=== PATIENT | male | born 1945 | race Caucasian/White ===

== ENCOUNTER 2016-09-23 04:41 | Emergency (ER) | payer MEDICARE, BC ==
[~2016-09-23] VITALS: Ht 177.8 cm; Wt 89.6 kg
[2016-09-23 04:41] VITALS: Ht 177.8 cm; Wt 89.6 kg
[~2016-09-23 04:41] MED LIST: ACET-783; GABA-222 PO; HYDR-1343 PO; METO1TAB19 PO; ROPI0.5T5; WARF5TAB67 PO
--- OUTSIDE RECORDS SUMMARY | 2016-09-23 04:46 | XMS REPORT | Referral Summary ---
Author Author [facility], Family Medicine Organization [facility] Address Unknown Phone Unavailable Care Team Providers Care Saddle And Harness Maker Name Role Phone Sania Higgins Primary Care Physician [phone] Encounter VC Date(s): 08/08/16 - 08/08/16 [facility], [address] [place] [id number] Discharge Disposition: 01-Home or Self Care Attending Physician: Robb Flowers APRN Admitting Physician: Robb Flowers APRN Referring Physician: Amandeep You III, MD Vital Signs Most recent to 1 oldest [Reference Range]: Temperature Tympanic 37.1 degC [36.6-38.1 degC] (08/08/16 1:59 PM) Peripheral Pulse 56 bpm Rate [60-100 bpm] *LOW* (08/08/16 1:59 PM) Respiratory Rate 18 br/min [14-20 br/min] (08/08/16 1:59 PM) Blood Pressure 124/70 mmHg [90-140/60-90 mmHg] (08/08/16 1:59 PM) SpO2 98 % (08/08/16 1:59 PM) Problem List Condition Effective Dates Status Health Status Informant Asthma(Confirmed) Active Benign essential Active hypertension (disorder)(Confirmed ) Constipation Resolved (disorder)(Confirmed ) Constipation(Confirm Active ed) Coronary artery Active disease(Confirmed) Generalized Active osteoarthritis (disorder)(Confirmed ) Gastritis(Confirmed) Active Gastroduodenitis Active (disorder)(Confirmed ) Hyperlipidemia(Confi Active rmed) Hypertension(Confirm < 02/06/14 Resolved ed) Irritable bowel Active syndrome(Confirmed) Irritable bowel Active syndrome (disorder)(Confirmed ) Back pain(Confirmed) Active Low back pain Active (finding)(Confirmed) Osteoarthritis(Confi Active rmed) Parkinson's disease Active (disorder)(Confirmed ) Parkinson's < 02/06/14 Resolved disease(Confirmed) Peptic ulcer without Active hemorrhage, without perforation AND without obstruction (disorder)(Confirmed ) Protein S Active deficiency/ hypercoagulability(C onfirmed) PUD (peptic ulcer Active disease)(Confirmed) Pulmonary Active embolism(Confirmed) Allergies, Adverse Reactions, Alerts No Known Allergies Medications amLODIPine 5 mg oral tablet 5 mg 1 tabs, Oral, Daily, # 90 tabs, 1 Refill(s), Pharmacy: [facility] [id number], 1 tabs Oral Daily Start Date: 05/06/16 Status: Ordered Coumadin 5 mg tablet See Instructions, TAKE 2 TABLETS BY ORAL ROUTE EVERY MWF EVENING AND 1.5 (7.5 MG ) EVERY STTS EVENING OR DIRECTED, # 90 tabs, eRx: [facility] , TAKE 2 TABLETS BY ORAL ROUTE EVERY MWF EVENING AND 1.5 (7.5 MG) EVERY STTS EVENING OR D... Start Date: 04/30/14 Status: Ordered Coumadin 5 mg tablet See Instructions, TAKE 2 TABLETS BY ORAL ROUTE EVERY MWF EVENING AND 1.5 (7.5 MG ) EVERY STTS EVENING OR DIRECTED, # 90 tabs, eRx: [facility] , TAKE 2 TABLETS BY ORAL ROUTE EVERY MWF EVENING AND 1.5 (7.5 MG) EVERY STTS EVENING OR D... Start Date: 03/05/14 Status: Ordered Coumadin 5 mg tablet See Instructions, TAKE 2 TABLETS BY ORAL ROUTE EVERY MWF EVENING AND 1.5 (7.5 MG ) EVERY STTS EVENING OR DIRECTED, # 90 tabs, eRx: [facility] , TAKE 2 TABLETS BY ORAL ROUTE EVERY MWF EVENING AND 1.5 (7.5 MG) EVERY STTS EVENING OR D... Start Date: 08/21/14 Status: Ordered Coumadin 5 mg tablet See Instructions, TAKE 2 TABLETS BY ORAL ROUTE EVERY MWF EVENING AND 1.5 (7.5 MG ) EVERY STTS EVENING OR DIRECTED, # 90 tabs, eRx: [facility] , TAKE 2 TABLETS BY ORAL ROUTE EVERY MWF EVENING AND 1.5 (7.5 MG) EVERY STTS EVENING OR D... Start Date: 06/17/14 Status: Ordered Metoprolol Tartrate 50 mg oral tablet See Instructions, TAKE 1 TABLET BY MOUTH TWICE DAILY, # 60 tabs, 5 Refill(s), eRx: [facility] [id number], TAKE 1 TABLET BY MOUTH TWICE DAILY Start Date: 05/16/16 Status: Ordered Sinemet 25 mg-100 mg oral tablet 1 tabs, Oral, TID, # 90 tabs, 0 Refill(s) Start Date: 02/07/14 Status: Ordered warfarin 5 mg oral tablet See Instructions, TAKE 1.5 TABLETS BY MOUTH EVERY DAY, with dose adjusted based on blood measruremnets., # 60 tabs, 2 Refill(s), Pharmacy: [facility] [id number], TAKE 1.5 TABLETS BY MOUTH EVERY DAY, with dose adjusted based on blood measruremnets. Start Date: 05/06/16 Status: Ordered Results Hematology Most recent to 1 oldest [Reference Range]: WBC [4.8-10.8 6.0 10*3/uL 10*3/uL] (08/08/16 3:33 PM) RBC [4.60-6.20] 5.10 (08/08/16 3:33 PM) Hgb [14.0-18.0 15.0 gm/dL gm/dL] (08/08/16 3:33 PM) Hct [42.0-52.0 %] 45.5 % (08/08/16 3:33 PM) MCV [82.0-99.0 fL] 89.2 fL (08/08/16 3:33 PM) MCH [27.0-32.0 pg] 29.4 pg (08/08/16 3:33 PM) MCHC [32.0-36.0 33.0 gm/dL gm/dL] (08/08/16 3:33 PM) RDW [11.5-14.5 %] 13.8 % (08/08/16 3:33 PM) Platelet [150-400 216 10*3/uL 10*3/uL] (08/08/16 3:33 PM) MPV [8.8-14.8 fL] 11.1 fL (08/08/16 3:33 PM) Immature 0.3 % Granulocytes (08/08/16 3:33 PM) [0.0-1.0 %] Neutrophils [51-75 58 % %] (08/08/16 3:33 PM) Lymphocytes [20-46 24 % %] (08/08/16 3:33 PM) Monocytes [4-11 %] 14 % *HI* (08/08/16 3:33 PM) Eosinophils [0-4 %] 3 % (08/08/16 3:33 PM) Basophils [0-2 %] 1 % (08/08/16 3:33 PM) Neutro Absolute 3.49 [1.90-7.00] (08/08/16 3:33 PM) Lymph Absolute 1.42 [0.80-3.30] (08/08/16 3:33 PM) Colbert Absolute 0.84 [0.30-1.00] (08/08/16 3:33 PM) Eos Absolute 0.20 [0.00-0.50] (08/08/16 3:33 PM) Baso Absolute 0.03 [0.00-0.20] (08/08/16 3:33 PM) Coagulation Most recent to 1 oldest [Reference Range]: PT Venous (08/08/16 3:33 PM) INR [0.8-1.2] 2.0 1 *HI* (08/08/16 3:33 PM) 1Result Comment: Normal (no anticoagulant): 0.8 - 1.2 Units Routine Therapeutic Range: 2.0 - 3.0 Units High Risk Therapeutic Range: 2.5 - 3.5 Units Chemistry Most recent to 1 oldest [Reference Range]: Sodium Lvl [135-144 141 mEq/L mEq/L] (08/08/16 3:33 PM) Potassium Lvl 4.4 mEq/L [3.5-5.2 mEq/L] (08/08/16 3:33 PM) Chloride [99-111 104 mEq/L mEq/L] (08/08/16 3:33 PM) CO2 [23-31 mEq/L] 27 mEq/L (08/08/16 3:33 PM) AGAP [3-20] 10 (08/08/16 3:33 PM) BUN [8-26 mg/dL] 12 mg/dL (08/08/16 3:33 PM) Glucose Lvl [70-99 92 mg/dL mg/dL] (08/08/16 3:33 PM) Creatinine Lvl 0.90 mg/dL [0.72-1.25 mg/dL] (08/08/16 3:33 PM) eGFR [>60 mL/min] >60 mL/min 1 (08/08/16 3:33 PM) Calcium Lvl 9.2 mg/dL 2 [8.4-10.2 mg/dL] (08/08/16 3:33 PM) Albumin Lvl [3.4-4.8 4.1 gm/dL gm/dL] (08/08/16 3:33 PM) Total Protein 7.1 gm/dL [6.0-7.6 gm/dL] (08/08/16 3:33 PM) Globulin [1.8-4.0 3.0 gm/dL gm/dL] (08/08/16 3:33 PM) ALT [0-55 U/L] 7 U/L (08/08/16 3:33 PM) AST [5-34 U/L] 23 U/L (08/08/16 3:33 PM) Alk Phos [40-150 71 U/L U/L] (08/08/16 3:33 PM) Bili Total [0.2-1.2 0.7 mg/dL mg/dL] (08/08/16 3:33 PM) 1Result Comment: Multiply eGFR results by 1.21 for race. 2Result Comment: Please note reference range change effective 07/29/2016. Immunizations Given and Recorded Vaccine Date Status Refusal Reason tetanus/diphth/pertuss (Tdap) adult/adol 10/02/15 Given influenza virus vaccine, live 05/31/12 Given influenza virus vaccine, live 05/14/12 Given pneumococcal 13-valent conjugate vaccine 10/02/15 Given Procedures Procedure Date Related Diagnosis Body Site Colonoscopy neg September 2011, Dr. 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 7.5mg Monday,Monday,, Monday & Monday Therapeutic level: 2-3 Start Lovenox on 08/09/2016. Give Lovenox 133mg injection once daily until through surgery (08/15/16). After surgery pt can start current Warfarin dosages of 8mg on & Mon, and 7.5mg all other days. Pt.is to continue lovenox of 133mg along with the current Warfarin and to have daily INR's done daily until he reaches his therapeutic level of 2 and then can discontinue Lovenox and continue with Warfarin dosage accordingly to INR levels. Cheng Flowers APRN 08/08/2016 Addendum Called [facility] and spoke to Katerin (PH: [phone] &FAX: [phone]) to set up by appointment. Pt. has appt. at 10:00am tomorrow (08/09/16). I faxed orders to [facility]. I called pt. no answer so I left a messae with the date, time & where to go Dolores Diaz (surgical unit [address] @ [facility]). TALIA on August 08, 2016 17:03 VOCATIONAL EXAMINER
--- OUTSIDE RECORDS SUMMARY | 2016-09-23 04:46 | XMS REPORT | Referral Summary ---
Author Author [facility], Family Medicine Organization [facility] Address Unknown Phone Unavailable Care Team Providers Care Customer Engineer Name Role Phone Sania Higgins Primary Care Physician [phone] Encounter Date(s): 04/03/15 - 04/03/15 [facility] [address] [place] [id number] Discharge Diagnosis: Pulmonary embolism Discharge Diagnosis: Anticoagulation goal of INR 2 to 3 Discharge Diagnosis: Back pain Discharge Diagnosis: Protein S deficiency Discharge Diagnosis: Rash Discharge Diagnosis: Parkinson's disease Discharge Diagnosis: Urine frequency Discharge Diagnosis: Coronary artery disease Discharge Diagnosis: Benign essential hypertension Discharge Disposition: 01-Home or Self Care Attending Physician: Russ Higgins MD Admitting Physician: Russ Higgins MD Vital Signs Most recent to 1 oldest [Reference Range]: Temperature Tympanic 36.7 degC [36.6-38.1 degC] (04/03/15 12:52 PM) Peripheral Pulse 64 bpm Rate [60-100 bpm] (04/03/15 12:52 PM) Blood Pressure 115/60 mmHg [90-140/60-90 mmHg] (04/03/15 12:52 PM) Problem List Condition Effective Dates Status Health Status Informant Anticoagulation goal Active of INR 2 to 3(Confirmed) Asthma(Confirmed) Active Benign essential Active hypertension (disorder)(Confirmed ) Constipation(Confirm Active ed) Constipation Resolved (disorder)(Confirmed ) Coronary artery Active disease(Confirmed) Generalized Active osteoarthritis (disorder)(Confirmed ) Gastritis(Confirmed) Active Gastroduodenitis Active (disorder)(Confirmed ) Hyperlipidemia(Confi Active rmed) Hypertension(Confirm < 02/06/14 Resolved ed) Irritable bowel Active syndrome(Confirmed) Irritable bowel Active syndrome (disorder)(Confirmed ) Back pain(Confirmed) Active Low back pain Active (finding)(Confirmed) Osteoarthritis(Confi Active rmed) Parkinson's < 02/06/14 Resolved disease(Confirmed) Parkinson's disease Active (disorder)(Confirmed ) Peptic ulcer without Active hemorrhage, without perforation AND without obstruction (disorder)(Confirmed ) Protein S Active deficiency/ hypercoagulability(C onfirmed) PUD (peptic ulcer Active disease)(Confirmed) Pulmonary Active embolism(Confirmed) Allergies, Adverse Reactions, Alerts No Known Allergies Medications Coumadin 5 mg oral tablet See Instructions, 2 TABS ORAL DAILY, # 60 tabs, 4 Refill(s), eRx: [email or web address] , 2 TABS ORAL DAILY Start Date: 04/29/15 Status: Ordered Coumadin 5 mg tablet See Instructions, TAKE 2 TABLETS BY ORAL ROUTE EVERY MWF EVENING AND 1.5 (7.5 MG ) EVERY STTS EVENING OR DIRECTED, # 90 tabs, eRx: [email or web address] , TAKE 2 TABLETS BY ORAL ROUTE EVERY MWF EVENING AND 1.5 (7.5 MG) EVERY STTS EVENING OR D... Start Date: 04/30/14 Status: Ordered Coumadin 5 mg tablet See Instructions, TAKE 2 TABLETS BY ORAL ROUTE EVERY MWF EVENING AND 1.5 (7.5 MG ) EVERY STTS EVENING OR DIRECTED, # 90 tabs, eRx: [email or web address] , TAKE 2 TABLETS BY ORAL ROUTE EVERY MWF EVENING AND 1.5 (7.5 MG) EVERY STTS EVENING OR D... Start Date: 03/05/14 Status: Ordered Coumadin 5 mg tablet See Instructions, TAKE 2 TABLETS BY ORAL ROUTE EVERY MWF EVENING AND 1.5 (7.5 MG ) EVERY STTS EVENING OR DIRECTED, # 90 tabs, eRx: [email or web address] , TAKE 2 TABLETS BY ORAL ROUTE EVERY MWF EVENING AND 1.5 (7.5 MG) EVERY STTS EVENING OR D... Start Date: 08/21/14 Status: Ordered Coumadin 5 mg tablet See Instructions, TAKE 2 TABLETS BY ORAL ROUTE EVERY MWF EVENING AND 1.5 (7.5 MG ) EVERY STTS EVENING OR DIRECTED, # 90 tabs, eRx: [email or web address] , TAKE 2 TABLETS BY ORAL ROUTE EVERY MWF EVENING AND 1.5 (7.5 MG) EVERY STTS EVENING OR D... Start Date: 06/17/14 Status: Ordered losartan 50 mg oral tablet 1 tabs, Oral, Daily, # 30 tabs, 0 Refill(s), other reason (Rx) Start Date: 09/30/14 Status: Ordered Metoprolol Tartrate 50 mg oral tablet See Instructions, 1 TABS ORAL BID, # 60 tabs, 5 Refill(s), eRx: [email or web address] [id number], 1 TABS ORAL BID Start Date: 04/10/15 Status: Ordered Sinemet 25 mg-100 mg oral tablet 1 tabs, Oral, TID, # 90 tabs, 0 Refill(s) Start Date: 02/07/14 Status: Ordered triamcinolone 0.1% topical cream 1 gil, Topical, BID, # 15 g, 1 Refill(s), Pharmacy: [email or web address] [id number] Start Date: 04/03/15 Stop Date: 05/04/15 Status: Ordered Results Urinalysis Most recent to 1 oldest [Reference Range]: UA Color Yellow (04/03/15 1:59 PM) UA Appear Turbid *ABN* (04/03/15 1:59 PM) UA pH [5.0-8.0] 5.0 (04/03/15 1:59 PM) UA Leuk Est Negative [Negative] (04/03/15 1:59 PM) UA Nitrite Negative [Negative] (04/03/15 1:59 PM) UA Protein Negative [Negative] (04/03/15 1:59 PM) UA Glucose Negative [Negative] (04/03/15 1:59 PM) UA Ketones Negative [Negative] (04/03/15 1:59 PM) UA Urobilinogen 0.2 mg/dL [<1.0 mg/dL] (04/03/15 1:59 PM) UA Bili [Negative] Negative (04/03/15 1:59 PM) UA Blood [Negative] Negative (04/03/15 1:59 PM) UA Spec Grav 1.036 [1.003-1.030] *HI* (04/03/15 1:59 PM) Type Clean Catch (04/03/15 1:59 PM) Immunizations Vaccine Date Refusal Reason influenza virus vaccine, live 05/31/12 influenza virus vaccine, live 05/14/12 Procedures Procedure Date Related Diagnosis Body Site Colonoscopy neg September 2011, Dr. Abreu 09/2011 Social History Social History Type Response Smoking Status Never smoker; Type: Cigarettes Assessment and Plan Extracted from: Title: Office Visit Note Author: Russ Higgins MD Date: 04/03/15 Assessment/Plan Anticoagulation goal of INR 2 to 3 Back pain Benign essential hypertension Ordered: Basic Metabolic Panel Coronary artery disease Parkinson's disease Protein S deficiency Pulmonary embolism Rash Urine frequency Ordered: Urinalysis with Culture if Indicated Orders: triamcinolone topical, 1 gil, Topical, BID, # 15 g, 1 Refill(s), Pharmacy: [facility] [id number] Continue current medications. Try the Triamcinolone cream for the rash on your foot. Extracted from: Title: Ambulatory Patient Education Author: Russ Higgins MD Date: Family Medicine Urinary Frequency The number of times a normal person urinates depends upon how much liquid they take in and how much liquid they are losing. If the temperature is hot and there is high humidity, then the person will sweat more and usually breathe a little more frequently. These factors decrease the amount of frequency of urination that would be considered normal. The amount you drink is easily determined, but the amount of fluid lost is sometimes more difficult to calculate. Fluid is lost in two ways: Sensible fluid loss is usually measured by the amount of urine that you get rid of. Losses of fluid can also occur with diarrhea. Insensible fluid loss is more difficult to measure. It is caused by evaporation. Insensible loss of fluid occurs through breathing and sweating. It usually ranges from a little less than a quart to a little more than a quart of fluid a day. In normal temperatures and activity levels, the average person may urinate 4 to 7 times in a 24-hour period. Needing to urinate more often than that could indicate a problem. If one urinates 4 to 7 times in 24 hours and has large volumes each time, that could indicate a different problem from one who urinates 4 to 7 times a day and has small volumes. The time of urinating is also important. Most urinating should be done during the waking hours. Getting up at night to urinate frequently can indicate some problems. CAUSES The bladder is the organ in your lower abdomen that holds urine. Like a balloon , it swells some as it fills up. Your nerves sense this and tell you it is time to head for the bathroom. There are a number of reasons that you might feel the need to urinate more often than usual. They include: Urinary tract infection. This is usually associated with other signs such as burning when you urinate. In men, problems with the prostate (a walnut-size gland that is located near the tube that carries urine out of your body). There are two reasons why the prostate can cause an increased frequency of urination: An enlarged prostate that does not let the bladder empty well. If the bladder only half empties when you urinate, then it only has half the capacity to fill before you have to urinate again. The nerves in the bladder become more hypersensitive with an increased size of the prostate even if the bladder empties completely. . Obesity. Excess weight is more likely to cause a problem for women than for men. Bladder stones or other bladder problems. Caffeine. Alcohol. Medications. For example, drugs that help the body get rid of extra fluid ( diuretics) increase urine production. Some other medicines must be taken with lots of fluids. Muscle or nerve weakness. This might be the result of a spinal cord injury , a stroke, multiple sclerosis, or Parkinson disease. Long-standing diabetes can decrease the sensation of the bladder. This loss of sensation makes it harder to sense the bladder needs to be emptied. Over a period of years, the bladder is stretched out by constant overfilling. This weakens the bladder muscles so that the bladder does not empty well and has less capacity to fill with new urine. Interstitial cystitis (also called painful bladder syndrome). This condition develops because the tissues that line the inside of the bladder are inflamed (inflammation is the body's way of reacting to injury or infection). It causes pain and frequent urination. It occurs in women more often than in men. DIAGNOSIS To decide what might be causing your urinary frequency, your health care provider will probably: Ask about symptoms you have noticed. Ask about your overall health. This will include questions about any medications you are taking. Do a physical examination. Order some tests. These might include: A blood test to check for diabetes or other health issues that could be contributing to the problem. Urine testing. This could measure the flow of urine and the pressure on the bladder. A test of your neurological system (the brain, spinal cord, and nerves). This is the system that senses the need to urinate. A bladder test to check whether it is emptying completely when you urinate. Cystoscopy. This test uses a thin tube with a tiny camera on it. It offers a look inside your urethra and bladder to see if there are problems. Imaging tests. You might be given a contrast dye and then asked to urinate. X-rays are taken to see how your bladder is working. TREATMENT It is important for you to be evaluated to determine if the amount or frequency that you have is unusual or abnormal. If it is found to be abnormal, the cause should be determined and this can usually be found out easily. Depending upon the cause, treatment could include medication, stimulation of the nerves, or surgery. There are not too many things that you can do as an individual to change your urinary frequency. It is important that you balance the amount of fluid intake needed to compensate for your activity and the temperature. Medical problems will be diagnosed and taken care of by your physician. There is no particular bladder training such as Kegel exercises that you can do to help urinary frequency. This is an exercise that is usually recommended for people who have leaking of urine when they laugh, cough, or sneeze. HOME CARE INSTRUCTIONS Take any medications your health care provider prescribed or suggested. Follow the directions carefully. Practice any lifestyle changes that are recommended. These might include: Drinking less fluid or drinking at different times of the day. If you need to urinate often during the night, for example, you may need to stop drinking fluids early in the evening. Cutting down on caffeine or alcohol. They both can make you need to urinate more often than normal. Caffeine is found in coffee, tea, and sodas. Losing weight, if that is recommended. Keep a journal or a log. You might be asked to record how much you drink and when and where you feel the need to urinate. This will also help evaluate how well the treatment provided by your physician is working. SEEK MEDICAL CARE IF: Your need to urinate often gets worse. You feel increased pain or irritation when you urinate. You notice blood in your urine. You have questions about any medications that your health care provider recommended. You notice blood, pus, or swelling at the site of any test or treatment procedure. You develop a fever of more than 100.5F (38.1C). SEEK IMMEDIATE MEDICAL CARE IF: You develop a fever of more than 102.0F (38.9C). Document Released: 04/08/2010 Document Revised: 10/27/2014 Document Reviewed: ExitCare Patient Information 2015 [facility], [facility]. This information is not intended to replace advice given to you by your health care provider. Make sure you discuss any questions you have with your health care provider. No follow up information was provided.
--- OUTSIDE RECORDS SUMMARY | 2016-09-23 04:46 | XMS REPORT | Referral Summary ---
Author Author [facility], Family Medicine Organization [facility] Address Unknown Phone Unavailable Care Team Providers Care Electrical Research Engineer Name Role Phone Sania Higgins Primary Care Physician [phone] Encounter VC Date(s): 03/28/16 - 03/28/16 [facility] [address] [place] [id number] Discharge Diagnosis: Benign essential hypertension Discharge Diagnosis: Fatigue Discharge Diagnosis: Parkinson's disease Discharge Diagnosis: Myalgia Discharge Disposition: 01-Home or Self Care Attending Physician: Russ Higgins MD Admitting Physician: Russ Higgins MD Vital Signs Most recent to 1 oldest [Reference Range]: Temperature Tympanic 36.1 degC [36.6-38.1 degC] *LOW* (03/28/16 10:05 AM) Peripheral Pulse 70 bpm Rate [60-100 bpm] (03/28/16 10:05 AM) Blood Pressure 142/78 mmHg [90-140/60-90 mmHg] *HI* (03/28/16 10:05 AM) Problem List Condition Effective Dates Status Health [...] 5 mg 1 tabs, Oral, Daily, # 30 tabs, 1 Refill(s), Pharmacy: [email or web address], 1 tabs Oral Daily Start Date: 03/28/16 Status: Ordered Coumadin 5 mg tablet See Instructions, TAKE 2 TABLETS BY ORAL ROUTE EVERY MWF EVENING AND 1.5 (7.5 MG ) EVERY STTS EVENING OR DIRECTED, # 90 tabs, eRx: [facility] , TAKE 2 TABLETS BY ORAL ROUTE EVERY MWF EVENING AND 1.5 (7.5 MG) EVERY STTS EVENING OR D... Start Date: 04/30/14 Status: Ordered Coumadin 5 mg tablet See Instructions, TAKE 2 TABLETS BY ORAL ROUTE EVERY MWF EVENING AND 1.5 (7.5 MG ) EVERY STTS EVENING OR DIRECTED, # 90 tabs, eRx: [facility] , TAKE 2 TABLETS BY ORAL ROUTE EVERY MWF EVENING AND 1.5 (7.5 MG) EVERY STTS EVENING OR D... Start Date: 03/05/14 Status: Ordered Coumadin 5 mg tablet See Instructions, TAKE 2 TABLETS BY ORAL ROUTE EVERY MWF EVENING AND 1.5 (7.5 MG ) EVERY STTS EVENING OR DIRECTED, # 90 tabs, eRx: [facility] , TAKE 2 TABLETS BY ORAL ROUTE EVERY MWF EVENING AND 1.5 (7.5 MG) EVERY STTS EVENING OR D... Start Date: 08/21/14 Status: Ordered Coumadin 5 mg tablet See Instructions, TAKE 2 TABLETS BY ORAL ROUTE EVERY MWF EVENING AND 1.5 (7.5 MG ) EVERY STTS EVENING OR DIRECTED, # 90 tabs, eRx: [facility] , TAKE 2 TABLETS BY ORAL ROUTE EVERY MWF EVENING AND 1.5 (7.5 MG) EVERY STTS EVENING OR D... Start Date: 06/17/14 Status: Ordered Metoprolol Tartrate 50 mg oral tablet See Instructions, TAKE 1 TABLET BY MOUTH TWICE DAILY, # 60 tabs, 4 Refill(s), eRx: [facility] [id number], TAKE 1 TABLET BY MOUTH TWICE DAILY Start Date: 12/11/15 Status: Ordered Sinemet 25 mg-100 mg oral tablet 1 tabs, Oral, TID, # 90 tabs, 0 Refill(s) Start Date: 02/07/14 Status: Ordered warfarin 5 mg oral tablet See Instructions, TAKE 2 TABLETS BY MOUTH EVERY DAY, # 60 tabs, 3 Refill(s), eRx : [facility] [id number], TAKE 2 TABLETS BY MOUTH EVERY DAY Start Date: 11/18/15 Status: Ordered Results Hematology Most recent to 1 oldest [Reference Range]: Sed Rate [0-15] 8 (03/28/16 11:00 AM) Chemistry Most recent to 1 oldest [Reference Range]: Sodium Lvl [135-144 139 mEq/L mEq/L] (03/28/16 11:00 AM) Potassium Lvl 4.2 mEq/L [3.5-5.2 mEq/L] (03/28/16 11:00 AM) Chloride [99-111 105 mEq/L mEq/L] (03/28/16 11:00 AM) CO2 [23-31 mEq/L] 26 mEq/L (03/28/16 11:00 AM) AGAP [3-20] 8 (03/28/16 11:00 AM) BUN [8-26 mg/dL] 16 mg/dL (03/28/16 11:00 AM) Glucose Lvl [70-99 98 mg/dL mg/dL] (03/28/16 11:00 AM) Creatinine Lvl 0.85 mg/dL [0.72-1.25 mg/dL] (03/28/16 11:00 AM) eGFR [>60 mL/min] >60 mL/min 1 (03/28/16 11:00 AM) Calcium Lvl 9.2 mg/dL [8.9-10.5 mg/dL] (03/28/16 11:00 AM) 1Result Comment: Multiply eGFR results by 1.21 for race. Immunizations Vaccine Date Refusal Reason tetanus/diphth/pertuss (Tdap) adult/adol 10/02/15 influenza virus vaccine, live 05/31/12 influenza virus vaccine, live 05/14/12 pneumococcal 13-valent conjugate vaccine 10/02/15 Procedures Procedure Date Related Diagnosis Body Site Colonoscopy neg September 2011, Dr. Abreu 09/2011 Social History Social History Type Response Smoking Status Never smoker; Type: Cigarettes Assessment and Plan Extracted from: Title: CDM HTN Author: Russ Higgins MD Date: 03/28/16 Impression and Plan Diagnosis Parkinson's disease ([id number] G20, Discharge, Medical). Myalgia (EIJ41-LP M79.1, Discharge, Medical). Fatigue (ZFM89-RG R53.83, Discharge, Medical). Benign essential hypertension ([id number] I10, Discharge, Medical). Orders Orders (Selected) Outpatient Orders Future (On Hold) BMP: Sedimentation Rate: Prescriptions Prescribed amLODIPine 5 mg oral tablet: 5 mg=1 tabs, Oral, Daily, 30 tabs, 1 Refill(s).
--- OUTSIDE RECORDS SUMMARY | 2016-09-23 04:46 | XMS REPORT | Referral Summary ---
Author Author [facility], Family Medicine Organization [facility] Address Unknown Phone Unavailable Care Team Providers Care Farm Loan Representative Name Role Phone Sania Higgins Primary Care Physician [phone] Encounter Date(s): 10/02/15 - 10/02/15 [facility], [address] [place] [id number] Discharge Diagnosis: Irritable bowel syndrome Discharge Diagnosis: Hyperlipidemia Discharge Diagnosis: Benign essential hypertension Discharge Diagnosis: Protein S deficiency Discharge Diagnosis: Degenerative joint disease involving multiple joints Discharge Diagnosis: Coronary artery disease Discharge Diagnosis: Warfarin anticoagulation Discharge Diagnosis: Parkinson's disease Discharge Disposition: 01-Home or Self Care Attending Physician: Russ Higgins MD Admitting Physician: Russ Higgins MD Vital Signs Most recent to 1 oldest [Reference Range]: Temperature Tympanic 36.4 degC [36.6-38.1 degC] *LOW* (10/02/15 12:53 PM) Peripheral Pulse 68 bpm Rate [60-100 bpm] (10/02/15 12:53 PM) Blood Pressure 156/80 mmHg [90-140/60-90 mmHg] *HI* (10/02/15 12:53 PM) Problem List Condition Effective Dates Status [...] DAILY, # 60 tabs, 4 Refill(s), eRx: [facility] , 2 TABS ORAL DAILY Start Date: 04/29/15 Status: Ordered Coumadin 5 mg tablet See Instructions, TAKE 2 TABLETS BY ORAL ROUTE EVERY MWF EVENING AND 1.5 (7.5 MG ) EVERY STTS EVENING OR DIRECTED, # 90 tabs, eRx: [facility] , TAKE 2 TABLETS BY ORAL ROUTE EVERY MWF EVENING AND 1.5 (7.5 MG) EVERY STTS EVENING OR D... Start Date: 04/30/14 Status: Ordered Coumadin 5 mg tablet See Instructions, TAKE 2 TABLETS BY ORAL ROUTE EVERY MWF EVENING AND 1.5 (7.5 MG ) EVERY STTS EVENING OR DIRECTED, # 90 tabs, eRx: [facility] , TAKE 2 TABLETS BY ORAL ROUTE EVERY MWF EVENING AND 1.5 (7.5 MG) EVERY STTS EVENING OR D... Start Date: 03/05/14 Status: Ordered Coumadin 5 mg tablet See Instructions, TAKE 2 TABLETS BY ORAL ROUTE EVERY MWF EVENING AND 1.5 (7.5 MG ) EVERY STTS EVENING OR DIRECTED, # 90 tabs, eRx: [facility] , TAKE 2 TABLETS BY ORAL ROUTE EVERY MWF EVENING AND 1.5 (7.5 MG) EVERY STTS EVENING OR D... Start Date: 08/21/14 Status: Ordered Coumadin 5 mg tablet See Instructions, TAKE 2 TABLETS BY ORAL ROUTE EVERY MWF EVENING AND 1.5 (7.5 MG ) EVERY STTS EVENING OR DIRECTED, # 90 tabs, eRx: [facility] , TAKE 2 TABLETS BY ORAL ROUTE [...] BID, # 60 tabs, 5 Refill(s), eRx: [id number], 1 TABS ORAL BID Start Date: 04/10/15 Status: Ordered Sinemet 25 mg-100 mg oral tablet 1 tabs, Oral, TID, # 90 tabs, 0 Refill(s) Start Date: 02/07/14 Status: Ordered Results Hematology Most recent to 1 oldest [Reference Range]: WBC [4.8-10.8 4.9 10*3/uL 10*3/uL] (10/02/15 1:50 PM) RBC [4.60-6.20] 5.18 (10/02/15 1:50 PM) Hgb [14.0-18.0 15.1 gm/dL gm/dL] (10/02/15 1:50 PM) Hct [42.0-52.0 %] 45.9 % (10/02/15 1:50 PM) MCV [82.0-99.0 fL] 88.6 fL (10/02/15 1:50 PM) MCH [27.0-32.0 pg] 29.2 pg (10/02/15 1:50 PM) MCHC [32.0-36.0 32.9 gm/dL gm/dL] (10/02/15 1:50 PM) RDW [11.5-14.5 %] 14.0 % (10/02/15 1:50 PM) Platelet [150-400 242 10*3/uL 10*3/uL] (10/02/15 1:50 PM) MPV [8.8-14.8 fL] 10.7 fL (10/02/15 1:50 PM) Immature 0.2 % Granulocytes (10/02/15 1:50 PM) [0.0-1.0 %] Neutrophils [51-75 63 % %] (10/02/15 1:50 PM) Lymphocytes [20-46 20 % %] (10/02/15 1:50 PM) Monocytes [4-11 %] 15 % *HI* (10/02/15 1:50 PM) Eosinophils [0-4 %] 2 % (10/02/15 1:50 PM) Basophils [0-2 %] 0 % (10/02/15 1:50 PM) Neutro Absolute 3.05 10*3 [1.90-7.00 10*3] (10/02/15 1:50 PM) Lymph Absolute 0.96 10*3 [0.80-3.30 10*3] (10/02/15 1:50 PM) [place] Absolute 0.72 10*3 [0.30-1.00 10*3] (10/02/15 1:50 PM) Eos Absolute 0.10 10*3 [0.00-0.50 10*3] (10/02/15 1:50 PM) Baso Absolute 0.02 10*3 [0.00-0.20 10*3] (10/02/15 1:50 PM) Chemistry Most recent to 1 oldest [Reference Range]: Sodium Lvl [135-144 138 mEq/L mEq/L] (10/02/15 1:50 PM) Potassium Lvl 4.2 mEq/L [3.5-5.2 mEq/L] (10/02/15 1:50 PM) Chloride [99-111 105 mEq/L mEq/L] (10/02/15 1:50 PM) CO2 [23-31 mEq/L] 27 mEq/L (10/02/15 1:50 PM) AGAP [3-20] 6 (10/02/15 1:50 PM) BUN [8-26 mg/dL] 13 mg/dL (10/02/15 1:50 PM) Glucose Lvl [70-99 95 mg/dL mg/dL] (10/02/15 1:50 PM) Creatinine Lvl 0.89 mg/dL [0.72-1.25 mg/dL] (10/02/15 1:50 PM) eGFR [>60 mL/min] >60 mL/min 1 (10/02/15 1:50 PM) Calcium Lvl 9.2 mg/dL [8.9-10.5 mg/dL] (4/8/16 1:50 PM) TSH with Reflex Free 1.81 T4 [0.35-4.94] (10/02/15 1:50 PM) 1Result Comment: Multiply eGFR results by [...] Cigarettes Assessment and Plan Extracted from: Title: CRMMP Author: Russ Higgins MD Date: 10/02/15 Assessment/Plan Benign essential hypertension Coronary artery disease Degenerative joint disease involving multiple joints Fatigue Ordered: Basic Metabolic Panel CBC w/ Differential TSH with Reflex Free T4 Hyperlipidemia Irritable bowel syndrome Need for vaccination Parkinson's disease Protein S deficiency Warfarin anticoagulation Orders: Lipid Panel Urinalysis with Culture if Indicated We'll evaluate fatigue with CBC, BMP, TSH. Also check urinalysis because of some urine urgency and screening PSA. Fasting lipids planned another day. He will follow with Dr. Johnson regarding coronary artery disease. Continue with Coumadin management per protocol-see flowsheet. Vaccines updated today. Follow-up 6 months or sooner if needed.
--- OUTSIDE RECORDS SUMMARY | 2016-09-23 04:46 | XMS REPORT | Referral Summary ---
Author Author [facility], Family Medicine Organization [facility] Address Unknown Phone Unavailable Care Team Providers Care Oven Stripper Name Role Phone Sania Higgins Primary Care Physician [phone] Encounter VC Date(s): 11/27/15 - 11/27/15 [facility] [address] [place] [address] Discharge Diagnosis: Benign essential hypertension Discharge Diagnosis: Warfarin anticoagulation Discharge Diagnosis: Protein S deficiency Discharge Disposition: 01-Home or Self Care Attending Physician: Russ Higgins MD Admitting Physician: Russ Higgins MD Vital Signs Most recent to 1 oldest [Reference Range]: Peripheral Pulse 63 bpm Rate [60-100 bpm] (11/27/15 11:03 AM) Respiratory Rate 18 br/min [14-20 br/min] (11/27/15 11:03 AM) Blood Pressure 118/68 mmHg [90-140/60-90 mmHg] (11/27/15 11:03 AM) SpO2 98 % (11/27/15 11:03 AM) Problem List Condition Effective Dates Status [...] No Known Allergies Medications Coumadin 5 mg tablet See Instructions, TAKE 2 TABLETS BY ORAL ROUTE EVERY MWF EVENING AND 1.5 (7.5 MG ) EVERY STTS EVENING OR DIRECTED, # 90 tabs, eRx: [facility] [id number] , TAKE 2 TABLETS BY ORAL ROUTE EVERY MWF EVENING AND 1.5 (7.5 MG) EVERY STTS EVENING OR D... Start Date: 04/30/14 Status: Ordered Coumadin 5 mg tablet See Instructions, TAKE 2 TABLETS BY ORAL ROUTE EVERY MWF EVENING AND 1.5 (7.5 MG ) EVERY STTS EVENING OR DIRECTED, # 90 tabs, eRx: [facility] , TAKE 2 TABLETS BY ORAL ROUTE EVERY MWF EVENING AND 1.5 (7.5 MG) EVERY STTS EVENING OR D... Start Date: 03/05/14 Status: Ordered Coumadin 5 mg tablet See Instructions, TAKE 2 TABLETS BY ORAL ROUTE EVERY MWF EVENING AND 1.5 (7.5 MG ) EVERY STTS EVENING OR DIRECTED, # 90 tabs, eRx: [facility] , TAKE 2 TABLETS BY ORAL ROUTE EVERY MWF EVENING AND 1.5 (7.5 MG) EVERY STTS EVENING OR D... Start Date: 08/21/14 Status: Ordered Coumadin 5 mg tablet See Instructions, TAKE 2 TABLETS BY ORAL ROUTE EVERY MWF EVENING AND 1.5 (7.5 MG ) EVERY STTS EVENING OR DIRECTED, # 90 tabs, eRx: [facility] , TAKE 2 TABLETS BY ORAL ROUTE EVERY MWF EVENING AND 1.5 (7.5 MG) EVERY STTS EVENING OR D... Start Date: 06/17/14 Status: Ordered losartan-hydrochlorothiazide 50 mg-12.5 mg oral tablet 1 tabs, Oral, Daily, # 30 tabs, 2 Refill(s), Pharmacy: [facility] [place][note 2] Start Date: 10/29/15 Status: Ordered Metoprolol Tartrate 50 mg oral tablet See Instructions, TAKE 1 TABLET BY MOUTH TWICE DAILY, # 60 tabs, eRx: [id number], TAKE 1 TABLET BY MOUTH TWICE DAILY Start Date: 10/07/15 Status: Ordered Metoprolol Tartrate 50 mg oral tablet See Instructions, TAKE 1 TABLET BY MOUTH TWICE DAILY, # 60 tabs, eRx: [facility] [id number], TAKE 1 TABLET BY MOUTH TWICE DAILY Start Date: 11/09/15 Status: Ordered Sinemet 25 mg-100 mg oral tablet 1 tabs, Oral, TID, # 90 tabs, 0 Refill(s) Start Date: 02/07/14 Status: Ordered warfarin 5 mg oral tablet See Instructions, TAKE 2 TABLETS BY MOUTH EVERY DAY, # 60 tabs, 3 Refill(s), eRx : [facility] [id number], TAKE 2 TABLETS BY MOUTH EVERY DAY Start Date: 11/18/15 Status: Ordered Results Coagulation Most recent to 1 oldest [Reference Range]: PT Venous (11/27/15 11:34 AM) INR [0.8-1.2] 2.3 1 *HI* (11/27/15 11:34 AM) 1Result Comment: Normal (no anticoagulant): 0.8 - 1.2 Units Routine Therapeutic Range: 2.0 - 3.0 Units High Risk Therapeutic Range: 2.5 - 3.5 Units Chemistry Most recent to 1 oldest [Reference Range]: Sodium Lvl [135-144 140 mEq/L mEq/L] (11/27/15 11:34 AM) Potassium Lvl 4.0 mEq/L [3.5-5.2 mEq/L] (11/27/15 11:34 AM) Chloride [99-111 104 mEq/L mEq/L] (11/27/15 11:34 AM) CO2 [23-31 mEq/L] 29 mEq/L (11/27/15 11:34 AM) AGAP [3-20] 7 (11/27/15 11:34 AM) BUN [8-26 mg/dL] 17 mg/dL (11/27/15 11:34 AM) Glucose Lvl [70-99 93 mg/dL mg/dL] (11/27/15 11:34 AM) Creatinine Lvl 0.99 mg/dL [0.72-1.25 mg/dL] (11/27/15 11:34 AM) eGFR [>60 mL/min] >60 mL/min 1 (11/27/15 11:34 AM) Calcium Lvl 9.4 mg/dL [8.9-10.5 mg/dL] (11/27/15 11:34 AM) 1Result Comment: Multiply eGFR results by [...] Assessment and Plan Extracted from: Title: CDM OV Author: Russ Higgins MD Date: 11/27/15 Impression and Plan Diagnosis Benign essential hypertension ([id number] I10, Discharge, Medical). Protein S deficiency (XYZ31-OZ D68.59, Discharge, Medical). Warfarin anticoagulation (MOL78-VB Z79.01, Discharge, Medical). Plan: He is doing well overall. Continue with current care. Continue follow up with Dr. Williamson. Advised that he could try an antihistamine for nasal drainage, such as Claritin , Vi, or Zyrtec. Will check INR and BMP today. Follow up in 6 months or sooner if needed. . Orders Orders (Selected) Outpatient Orders Future (On Hold) BMP: INR (PT): .
--- OUTSIDE RECORDS SUMMARY | 2016-09-23 04:46 | XMS REPORT | Referral Summary ---
Author Author [facility], Family Medicine Organization [facility] Address Unknown Phone Unavailable Care Team Providers Care Hatchery Helper Name Role Phone Sania Higgins Primary Care Physician [phone] Encounter Date(s): 04/03/15 - 04/03/15 [facility] [address] [place] [id number] Discharge Diagnosis: Pulmonary embolism Discharge Diagnosis: [...] DAILY, # 60 tabs, 4 Refill(s), eRx: [facility] , 2 TABS ORAL DAILY Start Date: 04/29/15 Status: Ordered Coumadin 5 mg tablet See Instructions, TAKE 2 TABLETS BY ORAL ROUTE EVERY MWF EVENING AND 1.5 (7.5 MG ) EVERY STTS EVENING OR DIRECTED, # 90 tabs, eRx: [facility] , TAKE 2 TABLETS BY ORAL ROUTE EVERY MWF EVENING AND 1.5 (7.5 MG) EVERY STTS EVENING OR D... Start Date: 04/30/14 Status: Ordered Coumadin 5 mg tablet See Instructions, TAKE 2 TABLETS BY ORAL ROUTE EVERY MWF EVENING AND 1.5 (7.5 MG ) EVERY STTS EVENING OR DIRECTED, # 90 tabs, eRx: [facility] , TAKE 2 TABLETS BY ORAL ROUTE EVERY MWF EVENING AND 1.5 (7.5 MG) EVERY STTS EVENING OR D... Start Date: 03/05/14 Status: Ordered Coumadin 5 mg tablet See Instructions, TAKE 2 TABLETS BY ORAL ROUTE EVERY MWF EVENING AND 1.5 (7.5 MG ) EVERY STTS EVENING OR DIRECTED, # 90 tabs, eRx: [facility] , TAKE 2 TABLETS BY ORAL ROUTE EVERY MWF EVENING AND 1.5 (7.5 MG) EVERY STTS EVENING OR D... Start Date: 08/21/14 Status: Ordered Coumadin 5 mg tablet See Instructions, TAKE 2 TABLETS BY ORAL ROUTE EVERY MWF EVENING AND 1.5 (7.5 MG ) EVERY STTS EVENING OR DIRECTED, # 90 tabs, eRx: [facility] , TAKE 2 TABLETS BY ORAL ROUTE EVERY MWF EVENING AND 1.5 (7.5 MG) EVERY STTS EVENING OR D... Start Date: 06/17/14 Status: Ordered losartan 50 mg oral tablet See Instructions, TAKE 1 TABLET BY MOUTH DAILY, # 30 tabs, eRx: [facility] [id number], TAKE 1 TABLET BY MOUTH DAILY Start Date: 10/07/15 Status: Ordered Metoprolol Tartrate 50 mg oral tablet See Instructions, TAKE 1 TABLET BY MOUTH TWICE DAILY, # 60 tabs, eRx: [facility] [id number], TAKE 1 TABLET BY MOUTH TWICE DAILY Start Date: 10/07/15 Status: Ordered Sinemet 25 mg-100 mg oral tablet 1 tabs, Oral, TID, # 90 tabs, 0 Refill(s) Start Date: 02/07/14 Status: Ordered Results Urinalysis Most recent to [...] 1:59 PM) Immunizations Vaccine Date Refusal Reason tetanus/diphth/pertuss (Tdap) [...] BID, # 15 g, 1 Refill(s), Pharmacy: [facility] [id number] Continue current medications. Try the Triamcinolone cream [...] 10/27/2014 Document Reviewed: ExitCare Patient Information 2015 [facility], [facility]. This information is not intended to replace advice given to you by your health care provider. Make sure you discuss any questions you have with your health care provider. No follow up information was provided.
--- OUTSIDE RECORDS SUMMARY | 2016-09-23 04:46 | XMS REPORT | Referral Summary ---
Author Author [facility], Family Medicine Organization [facility] Address Unknown Phone Unavailable Care Team Providers Care Sdc Teacher Name Role Phone Sania Higgins Primary Care Physician [phone] Encounter VC Date(s): 05/06/16 - 05/06/16 [facility] [address] [place] [address] Discharge Diagnosis: Protein S deficiency Discharge Diagnosis: Benign essential hypertension Discharge Diagnosis: Warfarin anticoagulation Discharge Disposition: 01-Home or Self Care Attending Physician: Russ Higgins MD Admitting Physician: Russ Higgins MD Vital Signs Most recent to 1 oldest [Reference Range]: Temperature Tympanic 36.5 degC [36.6-38.1 degC] *LOW* (05/06/16 10:53 AM) Peripheral Pulse 55 bpm Rate [60-100 bpm] *LOW* (05/06/16 10:53 AM) Blood Pressure 136/74 mmHg [90-140/60-90 mmHg] (05/06/16 10:53 AM) SpO2 98 % (05/06/16 10:53 AM) Problem List Condition Effective Dates Status [...] Daily, # 90 tabs, 1 Refill(s), Pharmacy: [facility] [id number], 1 tabs Oral Daily Start Date: 05/06/16 Status: Ordered Coumadin 5 mg tablet See Instructions, TAKE 2 TABLETS BY ORAL ROUTE EVERY MWF EVENING AND 1.5 (7.5 MG ) EVERY STTS EVENING OR DIRECTED, # 90 tabs, eRx: [facility] , TAKE 2 TABLETS BY ORAL ROUTE EVERY MWF EVENING AND 1.5 (7.5 MG) EVERY STTS EVENING OR D... Start Date: 04/30/14 Status: Ordered Coumadin 5 mg tablet See Instructions, TAKE 2 TABLETS BY ORAL ROUTE EVERY MWF EVENING AND 1.5 (7.5 MG ) EVERY STTS EVENING OR DIRECTED, # 90 tabs, eRx: [facility] , TAKE 2 TABLETS BY ORAL ROUTE EVERY MWF EVENING AND 1.5 (7.5 MG) EVERY STTS EVENING OR D... Start Date: 03/05/14 Status: Ordered Coumadin 5 mg tablet See Instructions, TAKE 2 TABLETS BY ORAL ROUTE EVERY MWF EVENING AND 1.5 (7.5 MG ) EVERY STTS EVENING OR DIRECTED, # 90 tabs, eRx: [facility] , TAKE 2 TABLETS BY ORAL ROUTE EVERY MWF EVENING AND 1.5 (7.5 MG) EVERY STTS EVENING OR D... Start Date: 08/21/14 Status: Ordered Coumadin 5 mg tablet See Instructions, TAKE 2 TABLETS BY ORAL ROUTE EVERY MWF EVENING AND 1.5 (7.5 MG ) EVERY STTS EVENING OR DIRECTED, # 90 tabs, eRx: [facility] , TAKE 2 TABLETS BY ORAL ROUTE EVERY MWF EVENING AND 1.5 (7.5 MG) EVERY STTS EVENING OR D... Start Date: 06/17/14 Status: Ordered Metoprolol Tartrate 50 mg oral tablet See Instructions, TAKE 1 TABLET BY MOUTH TWICE DAILY, # 60 tabs, 4 Refill(s), eRx: [facility] [id number], TAKE 1 TABLET BY MOUTH TWICE DAILY Start Date: 12/11/15 Status: Ordered Sinemet 25 mg-100 mg oral tablet 1 tabs, Oral, TID, # 90 tabs, 0 Refill(s) Start Date: 02/07/14 Status: Ordered warfarin 5 mg oral tablet See Instructions, TAKE 1.5 TABLETS BY MOUTH EVERY DAY, with dose adjusted based on blood measruremnets., # 60 tabs, 2 Refill(s), Pharmacy: [facility] [id number], TAKE 1.5 TABLETS BY MOUTH EVERY DAY, with dose adjusted based on blood measruremnets. Start Date: 05/06/16 Status: Ordered Results Coagulation Most recent to 1 oldest [Reference Range]: PT Venous (05/06/16 11:25 AM) INR [0.8-1.2] 1.8 1 *HI* (05/06/16 11:25 AM) 1Result Comment: Normal (no anticoagulant): 0.8 - 1.2 Units Routine Therapeutic Range: 2.0 - 3.0 Units High Risk Therapeutic Range: 2.5 - 3.5 Units Immunizations Vaccine Date Refusal Reason tetanus/diphth/pertuss (Tdap) adult/adol 10/02/15 influenza virus vaccine, live 05/31/12 influenza virus vaccine, live 05/14/12 pneumococcal 13-valent conjugate vaccine 10/02/15 Procedures Procedure Date Related Diagnosis Body Site Colonoscopy neg September 2011, Dr. Abreu 09/2011 Social History Social History Type Response Smoking Status Never smoker; Type: Cigarettes Assessment and Plan Extracted from: Title: 1 Month CDM Author: Russ Higgins MD Date: 05/06/16 Impression and Plan Diagnosis Benign essential hypertension ([id number]-[id number] I10, Discharge, Medical). Warfarin anticoagulation (ZKP09-OS Z79.01, Discharge, Medical). Protein S deficiency (SAO33-NM D68.59, Discharge, Medical). Orders Orders (Selected) Outpatient Orders Future (On Hold) PT/INR: Prescriptions Prescribed amLODIPine 5 mg oral tablet: 5 mg=1 tabs, Oral, Daily, 90 tabs, 1 Refill(s) warfarin 5 mg oral tablet: See Instructions, TAKE 1.5 TABLETS BY MOUTH EVERY DAY, with dose adjusted based on blood measruremnets., 60 tabs, 2 Refill(s).
--- OUTSIDE RECORDS SUMMARY | 2016-09-23 04:46 | XMS REPORT | Referral Summary ---
Author Author [facility], Family Medicine Organization [facility] Address Unknown Phone Unavailable Care Team Providers Care Catalog Library Assistant Name Role Phone Sania Higgins Primary Care Physician [phone] Encounter Date(s): 04/03/15 - 04/03/15 [facility] [address] [place] [address] [[email or web address] Discharge Diagnosis: Pulmonary embolism Discharge Diagnosis: Anticoagulation [...] DAILY, # 60 tabs, 4 Refill(s), eRx: [facility] , 2 TABS ORAL DAILY Start Date: 04/29/15 Status: Ordered Coumadin 5 mg tablet See Instructions, TAKE 2 TABLETS BY ORAL ROUTE EVERY MWF EVENING AND 1.5 (7.5 MG ) EVERY STTS EVENING OR DIRECTED, # 90 tabs, eRx: [facility] , TAKE 2 TABLETS BY ORAL ROUTE EVERY MWF EVENING AND 1.5 (7.5 MG) EVERY STTS EVENING OR D... Start Date: 04/30/14 Status: Ordered Coumadin 5 mg tablet See Instructions, TAKE 2 TABLETS BY ORAL ROUTE EVERY MWF EVENING AND 1.5 (7.5 MG ) EVERY STTS EVENING OR DIRECTED, # 90 tabs, eRx: [facility] , TAKE 2 TABLETS BY ORAL ROUTE EVERY MWF EVENING AND 1.5 (7.5 MG) EVERY STTS EVENING OR D... Start Date: 03/05/14 Status: Ordered Coumadin 5 mg tablet See Instructions, TAKE 2 TABLETS BY ORAL ROUTE EVERY MWF EVENING AND 1.5 (7.5 MG ) EVERY STTS EVENING OR DIRECTED, # 90 tabs, eRx: [facility] , TAKE 2 TABLETS BY ORAL ROUTE EVERY MWF EVENING AND 1.5 (7.5 MG) EVERY STTS EVENING OR D... Start Date: 08/21/14 Status: Ordered Coumadin 5 mg tablet See Instructions, TAKE 2 TABLETS BY ORAL ROUTE EVERY MWF EVENING AND 1.5 (7.5 MG ) EVERY STTS EVENING OR DIRECTED, # 90 tabs, eRx: [facility] , TAKE 2 TABLETS BY ORAL ROUTE [...] BID, # 60 tabs, 5 Refill(s), eRx: [facility] [id number], 1 TABS ORAL BID Start Date: 04/10/15 Status: Ordered Sinemet 25 mg-100 mg oral tablet 1 tabs, Oral, TID, # 90 tabs, 0 Refill(s) Start Date: 02/07/14 Status: Ordered triamcinolone 0.1% topical cream 1 gil, Topical, BID, # 15 g, 1 Refill(s), Pharmacy: [facility] [id number] Start Date: 04/03/15 Stop Date: 05/04/15 Status: [...] BID, # 15 g, 1 Refill(s), Pharmacy: [facility] [id number] Continue current medications. Try the Triamcinolone cream [...] 10/27/2014 Document Reviewed: ExitCare Patient Information 2015 [facility], [facility]. This information is not intended to replace advice given to you by your health care provider. Make sure you discuss any questions you have with your health care provider. No follow up information was provided.
--- OUTSIDE RECORDS SUMMARY | 2016-09-23 04:46 | XMS REPORT | Referral Summary ---
Author Author [facility], Family Medicine Organization [facility] Address Unknown Phone Unavailable Care Team Providers Care Flame Planer Name Role Phone Sania Higgins Primary Care Physician [phone] Encounter Date(s): 04/03/15 - 04/03/15 [facility] [address] [place] [address] Discharge Diagnosis: Pulmonary embolism Discharge Diagnosis: Anticoagulation [...] 2 TABS ORAL DAILY, # 60 tabs, eRx: [facility] , 2 TABS ORAL DAILY Start Date: 03/20/15 Status: Ordered Coumadin 5 mg tablet See Instructions, TAKE 2 TABLETS BY ORAL ROUTE EVERY MWF EVENING AND 1.5 (7.5 MG ) EVERY STTS EVENING OR DIRECTED, # 90 tabs, eRx: [facility] , TAKE 2 TABLETS BY ORAL ROUTE EVERY MWF EVENING AND 1.5 (7.5 MG) EVERY STTS EVENING OR D... Start Date: 04/30/14 Status: Ordered Coumadin 5 mg tablet See Instructions, TAKE 2 TABLETS BY ORAL ROUTE EVERY MWF EVENING AND 1.5 (7.5 MG ) EVERY STTS EVENING OR DIRECTED, # 90 tabs, eRx: [facility] , TAKE 2 TABLETS BY ORAL ROUTE EVERY MWF EVENING AND 1.5 (7.5 MG) EVERY STTS EVENING OR D... Start Date: 03/05/14 Status: Ordered Coumadin 5 mg tablet See Instructions, TAKE 2 TABLETS BY ORAL ROUTE EVERY MWF EVENING AND 1.5 (7.5 MG ) EVERY STTS EVENING OR DIRECTED, # 90 tabs, eRx: [facility] , TAKE 2 TABLETS BY ORAL ROUTE EVERY MWF EVENING AND 1.5 (7.5 MG) EVERY STTS EVENING OR D... Start Date: 08/21/14 Status: Ordered Coumadin 5 mg tablet See Instructions, TAKE 2 TABLETS BY ORAL ROUTE EVERY MWF EVENING AND 1.5 (7.5 MG ) EVERY STTS EVENING OR DIRECTED, # 90 tabs, eRx: [facility] , TAKE 2 TABLETS BY ORAL ROUTE EVERY MWF EVENING AND 1.5 (7.5 MG) EVERY STTS EVENING OR D... Start Date: 06/17/14 Status: Ordered losartan 50 mg oral tablet 1 tabs, Oral, Daily, # 30 tabs, 0 Refill(s), other reason (Rx) Start Date: 09/30/14 Status: Ordered Metoprolol Tartrate 50 mg oral tablet See Instructions, 1 TABS ORAL BID, # 60 tabs, 2 Refill(s), eRx: [facility] [id number], 1 TABS ORAL BID Start Date: 01/05/15 Status: Ordered Sinemet 25 mg-100 mg oral tablet 1 tabs, Oral, TID, # 90 tabs, 0 Refill(s) Start Date: 02/07/14 Status: Ordered triamcinolone 0.1% topical cream 1 gil, Topical, BID, # 15 g, 1 Refill(s), Pharmacy: [facility] [id number] Start Date: 04/03/15 Stop Date: 05/04/15 Status: [...] BID, # 15 g, 1 Refill(s), Pharmacy: [facility] [id number] Continue current medications. Try the Triamcinolone cream [...] 10/27/2014 Document Reviewed: ExitCare Patient Information 2015 [facility], [facility]. This information is not intended to replace advice given to you by your health care provider. Make sure you discuss any questions you have with your health care provider. No follow up information was provided.
--- OUTSIDE RECORDS SUMMARY | 2016-09-23 04:46 | XMS REPORT | Referral Summary ---
Author Author [facility], Family Medicine Organization [facility] Address Unknown Phone Unavailable Care Team Providers Care Deckhand Engineer Name Role Phone Sania Higgins Primary Care Physician [phone] Encounter Date(s): 04/03/15 - 04/03/15 [facility] [address] [place] [address] Discharge Diagnosis: Pulmonary embolism Discharge Diagnosis: Anticoagulation [...] DAILY, # 60 tabs, 4 Refill(s), eRx: [facility] , 2 TABS ORAL DAILY Start Date: 04/29/15 Status: Ordered Coumadin 5 mg tablet See Instructions, TAKE 2 TABLETS BY ORAL ROUTE EVERY MWF EVENING AND 1.5 (7.5 MG ) EVERY STTS EVENING OR DIRECTED, # 90 tabs, eRx: [facility] , TAKE 2 TABLETS BY ORAL ROUTE EVERY MWF EVENING AND 1.5 (7.5 MG) EVERY STTS EVENING OR D... Start Date: 04/30/14 Status: Ordered Coumadin 5 mg tablet See Instructions, TAKE 2 TABLETS BY ORAL ROUTE EVERY MWF EVENING AND 1.5 (7.5 MG ) EVERY STTS EVENING OR DIRECTED, # 90 tabs, eRx: [facility] , TAKE 2 TABLETS BY ORAL ROUTE EVERY MWF EVENING AND 1.5 (7.5 MG) EVERY STTS EVENING OR D... Start Date: 03/05/14 Status: Ordered Coumadin 5 mg tablet See Instructions, TAKE 2 TABLETS BY ORAL ROUTE EVERY MWF EVENING AND 1.5 (7.5 MG ) EVERY STTS EVENING OR DIRECTED, # 90 tabs, eRx: [facility] , TAKE 2 TABLETS BY ORAL ROUTE EVERY MWF EVENING AND 1.5 (7.5 MG) EVERY STTS EVENING OR D... Start Date: 08/21/14 Status: Ordered Coumadin 5 mg tablet See Instructions, TAKE 2 TABLETS BY ORAL ROUTE EVERY MWF EVENING AND 1.5 (7.5 MG ) EVERY STTS EVENING OR DIRECTED, # 90 tabs, eRx: [facility] , TAKE 2 TABLETS BY ORAL ROUTE [...] BID, # 60 tabs, 5 Refill(s), eRx: [facility] [id number], 1 TABS ORAL BID Start Date: 04/10/15 Status: Ordered Sinemet 25 mg-100 mg oral tablet 1 tabs, Oral, TID, # 90 tabs, 0 Refill(s) Start Date: 02/07/14 Status: Ordered triamcinolone 0.1% topical cream 1 gil, Topical, BID, # 15 g, 1 Refill(s), Pharmacy: [facility] [id number] Start Date: 04/03/15 Stop Date: 05/04/15 Status: [...] BID, # 15 g, 1 Refill(s), Pharmacy: [facility] [id number] Continue current medications. Try the Triamcinolone cream [...] 10/27/2014 Document Reviewed: ExitCare Patient Information 2015 [facility], [facility]. This information is not intended to replace advice given to you by your health care provider. Make sure you discuss any questions you have with your health care provider. No follow up information was provided.
--- OUTSIDE RECORDS SUMMARY | 2016-09-23 04:47 | XMS REPORT | Referral Summary ---
Author Organization Unknown Address Unknown Phone Unavailable Care Team Providers Care Treasury Analyst Name Role Phone Sania Higgins Primary Care Physician [phone] Encounter [facility] [phone] Date(s): 09/09/14 - 09/09/14 [facility], [facility], Family [address] [place] [address] Discharge Diagnosis: PE - Pulmonary embolism Discharge Diagnosis: Chest tightness Discharge Diagnosis: Parkinson's disease Discharge Diagnosis: Night sweats Discharge Diagnosis: Chronic headaches Discharge Diagnosis: Urine frequency Discharge Diagnosis: Protein S deficiency Discharge Diagnosis: Abnormal EKG Discharge Diagnosis: Benign essential hypertension Discharge Diagnosis: Coronary artery disease Discharge Diagnosis: Anticoagulation goal of INR 2 to 3 Discharge Disposition: Home or Self Care Attending Physician: Russ Higgins MD Admitting Physician: Russ Higgins MD Vital Signs Most recent to 1 oldest [Reference Range]: Temperature Tympanic 36.3 degC [36.6-38.1 degC] *LOW* (09/09/14 12:46 PM) Peripheral Pulse 64 bpm Rate [60-100 bpm] (09/09/14 12:46 PM) Blood Pressure 165/85 mmHg [90-140/60-90 mmHg] *HI* (09/09/14 12:46 PM) Problem List Condition Effective Dates Status Health Status Informant Anticoagulation goal Active of INR 2 to 3(Confirmed) Asthma(Confirmed) Active Back pain(Confirmed) Active Benign essential Active hypertension (disorder)(Confirmed ) Constipation(Confirm Active ed) Constipation Active (disorder)(Confirmed ) Coronary artery Active disease(Confirmed) Generalized Active osteoarthritis (disorder)(Confirmed ) Gastritis(Confirmed) Active Gastroduodenitis Active (disorder)(Confirmed ) Hyperlipidemia(Confi Active rmed) Hypertension(Confirm Active ed) Irritable bowel Active syndrome(Confirmed) Irritable bowel Active syndrome (disorder)(Confirmed ) Low back pain Active (finding)(Confirmed) Osteoarthritis(Confi Active rmed) Parkinson's Active disease(Confirmed) Parkinson's disease Active (disorder)(Confirmed ) Peptic ulcer without Active hemorrhage, without perforation AND without obstruction (disorder)(Confirmed ) Protein S Active deficiency/ hypercoagulability(C onfirmed) PUD (peptic ulcer Active disease)(Confirmed) Pulmonary Active embolism(Confirmed) Allergies, Adverse Reactions, Alerts No Known Allergies Medications amLODIPine 5 mg oral tablet See Instructions, 1 TABS ORAL DAILY, # 30 tabs, 5 Refill(s), eRx: [facility] , 1 TABS ORAL DAILY Special Instructions: 1 TABS ORAL DAILY Start Date: 04/07/14 Status: Ordered Coumadin 5 mg tablet See Instructions, TAKE 2 TABLETS BY ORAL ROUTE EVERY MWF EVENING AND 1.5 (7.5 MG ) EVERY STTS EVENING OR DIRECTED, # 90 tabs, eRx: [facility] , TAKE 2 TABLETS BY ORAL ROUTE EVERY MWF EVENING AND 1.5 (7.5 MG) EVERY STTS EVENING OR D... Special Instructions: TAKE 2 TABLETS BY ORAL ROUTE EVERY MWF EVENING AND 1.5 ( 7.5 MG) EVERY STTS EVENING OR DIRECTED Start Date: 04/30/14 Status: Ordered Coumadin 5 mg tablet See Instructions, TAKE 2 TABLETS BY ORAL ROUTE EVERY MWF EVENING AND 1.5 (7.5 MG ) EVERY STTS EVENING OR DIRECTED, # 90 tabs, eRx: [facility] , TAKE 2 TABLETS BY ORAL ROUTE EVERY MWF EVENING AND 1.5 (7.5 MG) EVERY STTS EVENING OR D... Special Instructions: TAKE 2 TABLETS BY ORAL ROUTE EVERY MWF EVENING AND 1.5 ( 7.5 MG) EVERY STTS EVENING OR DIRECTED Start Date: 03/05/14 Status: Ordered Coumadin 5 mg tablet See Instructions, TAKE 2 TABLETS BY ORAL ROUTE EVERY MWF EVENING AND 1.5 (7.5 MG ) EVERY STTS EVENING OR DIRECTED, # 90 tabs, eRx: [facility] , TAKE 2 TABLETS BY ORAL ROUTE EVERY MWF EVENING AND 1.5 (7.5 MG) EVERY STTS EVENING OR D... Special Instructions: TAKE 2 TABLETS BY ORAL ROUTE EVERY MWF EVENING AND 1.5 ( 7.5 MG) EVERY STTS EVENING OR DIRECTED Start Date: 08/21/14 Status: Ordered Coumadin 5 mg tablet See Instructions, TAKE 2 TABLETS BY ORAL ROUTE EVERY MWF EVENING AND 1.5 (7.5 MG ) EVERY STTS EVENING OR DIRECTED, # 90 tabs, eRx: [facility] [id number] , TAKE 2 TABLETS BY ORAL ROUTE EVERY MWF EVENING AND 1.5 (7.5 MG) EVERY STTS EVENING OR D... Special Instructions: TAKE 2 TABLETS BY ORAL ROUTE EVERY MWF EVENING AND 1.5 ( 7.5 MG) EVERY STTS EVENING OR DIRECTED Start Date: 06/17/14 Status: Ordered Metoprolol Tartrate 50 mg oral tablet See Instructions, 1 TABS ORAL BID, # 60 tabs, 2 Refill(s), eRx: [facility] [id number], 1 TABS ORAL BID Special Instructions: 1 TABS ORAL BID Start Date: 07/31/14 Status: Ordered Sinemet 25 mg-100 mg oral tablet 1 tabs, Oral, TID, # 90 tabs, 0 Refill(s) Start Date: 02/07/14 Status: Ordered Results Hematology Most recent to 1 oldest [Reference Range]: WBC [4.8-10.8 K/uL] 5.9 K/uL (09/09/14 2:18 PM) RBC [4.60-6.20 M/uL] 5.27 M/uL (09/09/14 2:18 PM) Hgb [14.0-18.0 16.0 gm/dL gm/dL] (09/09/14 2:18 PM) Hct [42.0-52.0 %] 45.7 % (09/09/14 2:18 PM) MCV [82.0-99.0 fL] 86.7 fL (09/09/14 2:18 PM) MCH [27.0-32.0 pg] 30.4 pg (09/09/14 2:18 PM) MCHC [32.0-36.0 35.0 gm/dL gm/dL] (09/09/14 2:18 PM) RDW [11.5-14.5 %] 14.2 % (09/09/14 2:18 PM) Platelet [150-400 229 K/uL K/uL] (09/09/14 2:18 PM) MPV [8.8-14.8 fL] 10.8 fL (09/09/14 2:18 PM) Immature 0.2 % Granulocytes (09/09/14 2:18 PM) [0.0-1.0 %] Neutrophils [51-75 65 % %] (09/09/14 2:18 PM) Lymphocytes [20-46 19 % %] *LOW* (09/09/14 2:18 PM) Monocytes [4-11 %] 13 % *HI* (09/09/14 2:18 PM) Eosinophils [0-4 %] 2 % (09/09/14 2:18 PM) Basophils [0-2 %] 1 % (09/09/14 2:18 PM) Neutro Absolute 3.81 THOUS [1.90-7.00 THOUS] (09/09/14 2:18 PM) Lymph Absolute 1.13 THOUS [0.80-3.30 THOUS] (09/09/14 2:18 PM) [place] Absolute 0.74 THOUS [0.30-1.00 THOUS] (09/09/14 2:18 PM) Eos Absolute 0.13 THOUS [0.00-0.50 THOUS] (09/09/14 2:18 PM) Baso Absolute 0.03 THOUS [0.00-0.20 THOUS] (09/09/14 2:18 PM) Coagulation Most recent to 1 oldest [Reference Range]: PT Venous (09/09/14 2:18 PM) INR [0.8-1.2] 2.4 1 *HI* (09/09/14 2:18 PM) 1Result Comment: Normal (no anticoagulant): 0.8 - 1.2 Units Routine Therapeutic Range: 2.0 - 3.0 Units High Risk Therapeutic Range: 2.5 - 3.5 Units Chemistry Most recent to 1 oldest [Reference Range]: Sodium Lvl [135-144 139 mEq/L mEq/L] (09/09/14 2:18 PM) Potassium Lvl 4.2 mEq/L [3.5-5.2 mEq/L] (09/09/14 2:18 PM) Chloride [99-111 103 mEq/L mEq/L] (09/09/14 2:18 PM) CO2 [23-31 mEq/L] 26 mEq/L (09/09/14 2:18 PM) AGAP [3-20] 10 (09/09/14 2:18 PM) BUN [8-26 mg/dL] 9 mg/dL (09/09/14 2:18 PM) Glucose Lvl [70-99 94 mg/dL mg/dL] (09/09/14 2:18 PM) Creatinine Lvl 0.85 mg/dL [0.72-1.25 mg/dL] (09/09/14 2:18 PM) eGFR [>60 mL/min] >60 mL/min 2 (09/09/14 2:18 PM) Calcium Lvl 9.6 mg/dL [8.9-10.5 mg/dL] (09/09/14 2:18 PM) Albumin Lvl [3.4-4.8 4.2 gm/dL gm/dL] (09/09/14 2:18 PM) Total Protein 7.2 gm/dL [6.2-8.1 gm/dL] (09/09/14 2:18 PM) Globulin [1.8-4.0 3.0 gm/dL gm/dL] (09/09/14 2:18 PM) ALT [0-55 unit/L] 5 unit/L (09/09/14 2:18 PM) AST [5-34 unit/L] 24 unit/L (09/09/14 2:18 PM) Alk Phos [40-150 71 unit/L unit/L] (09/09/14 2:18 PM) Bili Total [0.2-1.2 0.6 mg/dL mg/dL] (09/09/14 2:18 PM) TSH with Reflex Free 1.94 T4 [0.35-4.94] (09/09/14 2:18 PM) 2Result Comment: Multiply eGFR results by 1.21 for race. Urinalysis Most recent to 1 oldest [Reference Range]: UA Color Yellow (09/09/14 2:30 PM) UA Appear Cloudy *ABN* (09/09/14 2:30 PM) UA pH [5.0-8.0] 7.0 (09/09/14 2:30 PM) UA Leuk Est Negative [Negative] (09/09/14 2:30 PM) UA Nitrite Negative [Negative] (09/09/14 2:30 PM) UA Protein Negative [Negative] (09/09/14 2:30 PM) UA Glucose Negative [Negative] (09/09/14 2:30 PM) UA Ketones Negative [Negative] (09/09/14 2:30 PM) UA Urobilinogen 0.2 mg/dL [<1.0 mg/dL] (09/09/14 2:30 PM) UA Bili [Negative] Negative (09/09/14 2:30 PM) UA Blood [Negative] Negative (09/09/14 2:30 PM) UA Spec Grav 1.015 [1.003-1.030] (09/09/14 2:30 PM) Type Clean Catch (09/09/14 2:30 PM) Immunizations Vaccine Date Refusal Reason influenza virus vaccine, live 05/31/12 influenza virus vaccine, live 05/14/12 Procedures Procedure Date Related Diagnosis Body Site Colonoscopy neg September 2011, Dr. Abreu 09/2011 Social History Social History Type Response Smoking Status Never smoker; Type: Cigarettes Assessment and Plan Extracted from: Title: Office Visit Note Author: Russ Higgins MD Date: 09/09/14 Assessment/Plan Abnormal EKG Anticoagulation goal of INR 2 to 3 Recheck INR today. After discussing alternative anticoagulants, he wants to stay on Coumadin. Ordered: PT Benign essential hypertension Blood pressure is elevated, presumably because he is no longer using the amlodipine. He is fairly convinced that he is having adverse reactions to the medications. I think he clearly will need additional treatment for his blood pressure, although it's not urgent and rather than mix up the situation/interpretation of symptoms, we'll leave him off amlodipine and avoid adding new medication right now. Reevaluate again after about 3 weeks. Chest tightness Evaluation of the chest tightness included an EKG. This shows a right bundle branch block but there is some change from the prior EKG of 06/17/2011, including Q waves in leads 2 and 3. I don't think his current symptoms are typical for a cardiac process, but with known history of coronary artery disease I think cardiac reevaluation is appropriate. Refer back to Dr. Johnson whom he has seen in the past. Ordered: EKG with Interpretation [id number] Chronic headaches Uncertain etiology, although he is convinced there may be a relationship to the amlodipine. I think he may have some arthritis of the neck which is a contributor. I encouraged him to bring this up with Dr. Dillard when he sees him next. Coronary artery disease Night sweats Unclear if these are true fevers. I asked him to monitor temperatures when these occur. Ordered: CBC w/ Differential Comprehensive Metabolic Panel TSH with Reflex Free T4 Parkinson's disease Following with Dr. Dillard. PE - Pulmonary embolism Protein S deficiency Urine frequency Check urinalysis. Ordered: Urinalysis with Culture if Indicated Follow-up with me in 3 weeks or sooner if needed. We will send copies of this dictation to Dr. Dillard and to Dr. Johnson.
--- OUTSIDE RECORDS SUMMARY | 2016-09-23 04:47 | XMS REPORT | Continuity of Care Document ---
Author Author [facility] Organization [facility] Address Unknown Phone Unavailable Allergies Active Description Code Type Severity Reaction Onset Reported/Identified Relationship to Patient Clinical Status Yes No Known Allergies NKMA N/A N/A 02/07/2014 Medications Medication Packaging Start Date Stop Date Route Dosage Sig * DONT RECONCILE--CHANGE PENDING EA 09/16/2016 09/20/2016 PO PRN LACTATED RINGERS 1000 ML IV SOLN BAG 09/20/2016 09/20/2016 IV PRE-OP ceFAZolin 1GM VIAL VL 09/20/2016 09/20/2016 IV PRE-OP BACITRACIN 500 UNIT/GM OINT [0.9GM U.D.] PKT 09/20/20162016 TOP ONCE SODIUM CHLORIDE PF 0.9% 10ML INJ VL 09/20/2016 09/20/2016 IVP ONCE THROMBIN 5000 UNIT VIAL VL 09/20/2016 09/20/2016 TOP ONCE SODIUM CHLORIDE 0.9% 1000ML IRRIG SOLN EA 09/20/20162016 IRR ONCE ceFAZolin 1GM VIAL VL 09/20/2016 09/20/2016 IVP ONCE fentaNYL 250 MCG/5ML INJ AMP 09/20/2016 09/20/2016 IV ONCE LIDOCAINE 2% SYRINGE [100MG/5ML] SYR 09/20/2016 09/20/2016 IVP ONCE PROPOFOL 200MG/20ML INJ VL 09/20/2016 09/20/2016 IVP ONCE ONDANSETRON 4MG/2ML INJ VL 09/20/2016 09/20/2016 IVP ONCE ROCURONIUM 50MG/5ML INJ VL 09/20/2016 09/20/2016 IVP ONCE * Ready to Reconcile EA 09/20/2016 09/20/2016 PO ASDIR MIDAZOLAM 2MG/2ML INJ VL 09/20/2016 09/20/2016 IV PRE-OP fentaNYL 100 MCG/2ML INJ AMP 09/20/2016 09/20/2016 IV PRE-OP ePHEDrine 20MG/2ML SYRINGE (COMPOUNDED) DOS 09/20/20162016 IVP ONCE hydroMORPHONE 2MG/1ML INJ ML 09/20/2016 09/20/2016 IV ONCE NEOSTIGMINE 3MG/3ML SYRINGE [COMPOUND] DOS 09/20/20162016 IVP ONCE SODIUM CHLORIDE 0.9% 10ML FLUSH SYRINGE SYR 09/20/20162017 IVP BID&0900,2100 LIDOCAINE 5% PATCH PAT 09/20/2016 09/20/2017 TD Q12H&0900, 2100 DOCUSATE SODIUM 100MG CAPSULE CAP 09/20/2016 09/20/2017 PO BID& 0900,2100 GLYCOPYRROLATE 0.2 MG/1ML INJ VL 09/20/2016 09/20/2016 IVP ONCE SODIUM CHLORIDE 0.9% 10ML FLUSH SYRINGE SYR 09/20/20162017 IVP PRN SODIUM CHLORIDE 0.9% 5ML FLUSH SYRINGE SYR 09/20/20162017 IVP PRN MAGNESIUM HYDROXIDE 2400MG/30ML SUSP EA 09/20/2016 09/20/2017 PO PRN MORPHINE 2 MG/1ML SYRINGE ML 09/20/2016 09/20/2017 IVP [id number] MORPHINE 4MG/1ML SYRINGE ML 09/20/2016 09/20/2017 IVP [id number] BISACODYL 10MG SUPPOS. SUP 09/20/2016 09/20/2017 CA* PRN ONDANSETRON 4MG TABLET TAB 09/20/2016 09/20/2017 PO [id number] METOCLOPRAMIDE 10MG TABLET TAB 09/20/2016 09/20/2016 PO [id number] HYDROcodone/ACETAMINOPHEN 7.5-325 MG TABLET TAB 09/20/2016 PO F5JFFFP BISACODYL 5MG TABLET TAB 09/20/2016 09/20/2017 PO PRN SODIUM CHLORIDE 0.9% 1000ML IV SOLN BAG 09/20/2016 09/21/2016 LVP 70ML/HR ONDANSETRON 4MG/2ML INJ VL 09/20/2016 09/20/2017 IVP [id number] METOCLOPRAMIDE 10MG/2ML INJ VL 09/20/2016 09/20/2016 IVP [id number] hydroMORPHONE 2MG/1ML INJ ML 09/20/2016 09/20/2016 IV POST-OP METHOCARBAMOL 750MG TABLET TAB 09/20/2016 09/20/2017 PO [id number] ONDANSETRON 4MG/2ML INJ VL 09/20/2016 09/21/2016 IV POST-OP *METOPROLOL TARTRATE 50MG TABLET TAB 09/20/2016 09/20/2017 PO BID&0900,2100 *CARBIDOPA/LEVODOPA CR 50-200MG TABLET TAB 09/20/20162017 PO QD&0900 *CARBIDOPA/LEVODOPA 25-100MG TABLET TAB 09/20/2016 09/20/2017 PO PRN *amLODIPine 5MG TABLET TAB 09/20/2016 09/20/2017 PO QD&0900 ceFAZolin 1GM VIAL VL 09/20/2016 09/21/2016 IVP Q8H&0000,0800, 1600 MAGNESIUM OXIDE 400MG TABLET TAB 09/21/2016 09/21/2017 PO BID& 0900,2100 KETOROLAC 30 MG/1ML INJ DOS 09/21/2016 09/21/2016 IVP [id number] MAGNESIUM OXIDE 400MG TABLET TAB 09/21/2016 09/21/2016 PO ONCE KETOROLAC 30 MG/1ML INJ DOS 09/21/2016 09/21/2016 IVP ONCE KETOROLAC 30 MG/1ML INJ DOS 09/21/2016 09/21/2017 IVP [id number] *METOPROLOL TARTRATE 50MG TABLET TAB 10/17/2016 09/20/2016 PO BID&0900,2100 *WARFARIN 4MG TABLET TAB 10/17/2016 10/17/2017 PO QD&0900 *CARBIDOPA/LEVODOPA CR 50-200MG TABLET TAB 10/17/20162016 PO QD&0900 *amLODIPine 5MG TABLET TAB 10/17/2016 09/20/2016 PO QD&0900 *CARBIDOPA/LEVODOPA 25-100MG TABLET TAB 10/17/2016 09/20/2016 PO PRN *ENOXAPARIN INJECTION 10/21/2016 10/21/2017 SQ ASDIR Problems Procedures Results Test Result Range Protime (INR) - 08/08/16 15:33 INR 2.0 NA 0.8-1.2 Prothrombin Time Venous seconds CBC With Platelet and Differential - 08/08/16 15:33 Absolute Basophils 0.03 10*3/uL 0.00- 0.20 Absolute Eosinophils 0.20 10*3/uL 0.00- 0.50 Absolute Lymphocytes 1.42 10*3/uL 0.80- 3.30 Absolute Monocytes 0.84 10*3/uL 0.30- 1.00 Absolute Neutrophils 3.49 10*3/uL 1.90- 7.00 Basophils 1 % 0-2 Eosinophils 3 % 0-4 HCT 45.5 % 42.0-52.0 HGB 15.0 g/dL 14.0-18.0 Immature Granulocytes 0.3 % 0.0-1.0 Lymphocytes 24 % 20-46 MCH 29.4 pg 27.0-32.0 MCHC 33.0 g/dL 32.0-36.0 MCV 89.2 fL 82.0-99.0 Monocytes 14 % 4-11 MPV 11.1 fL 8.8-14.8 Neutrophils 58 % 51-75 Platelet Count 216 K/uL 150-400 RBC 5.10 10*6/uL 4.60-6.20 RDW 13.8 % 11.5-14.5 WBC 6.0 K/uL 4.8-10.8 Comprehensive Metabolic Panel (CMP) - 08/08/16 15:33 Albumin 4.1 g/dL 3.4-4.8 Alkaline Phosphatase 71 U/L 40-150 ALT (SGPT) 7 U/L 0-55 Anion Gap 10 NA 3-20 AST (SGOT) 23 U/L 5-34 Bilirubin Total 0.7 mg/dL 0.2-1.2 BUN 12 mg/dL 8-26 Calcium 9.2 mg/dL 8.4-10.2 Chloride 104 mEq/L 99-111 CO2 27 mEq/L 23-31 Creatinine 0.90 mg/dL 0.72-1.25 Globulin 3.0 g/dL 1.8-4.0 Glucose 92 mg/dL 70-99 Potassium 4.4 mEq/L 3.5-5.2 Protein 7.1 g/dL 6.0-7.6 Sodium 141 mEq/L 135-144 eGFR - 08/08/16 15:33 eGFR >60 mL/min >60 6301-6 - 09/20/16 06:34 INR in Platelet poor plasma by Coagulation assay 1.1 0.9 - 1.1 Hemoglobin [Mass/volume] in Blood - 09/21/16 04:35 Hemoglobin [Mass/volume] in Blood 13.7 g/dl 13.5 - 17.0 Hematocrit [Volume Fraction] of Blood by Automated count - 09/21/16 04:35 Hematocrit [Volume Fraction] of Blood by Automated count 40.6 % 40.0 - 51.0 2345-7 - 09/21/16 04:35 Glucose [Mass/volume] in Serum or Plasma 126 mg/dl 64 - 112 Urea nitrogen [Mass/volume] in Serum or Plasma 9.8 mg/dl 8.4 - 25.8 Creatinine [Mass/volume] in Serum or Plasma 0.8 mg/dl 0.7 - 1.2 Calcium [Mass/volume] in Serum or Plasma 8.89 mg/dl 8.30 - 10.60 Sodium [Moles/volume] in Serum or Plasma 136 mmol/L 135 - 151 Potassium [Moles/volume] in Serum or Plasma 3.7 mmol/L 3.5 - 5.0 Chloride [Moles/volume] in Serum or Plasma 101 mmol/L 98 - 113 Carbon dioxide, total [Moles/volume] in Venous blood 27 mmol /L 23 - 34 Magnesium [Mass/volume] in Serum or Plasma - 09/21/16 04:35 Magnesium [Mass/volume] in Serum or Plasma 1.7 mg/dl 1.8 - 2.6 Encounters ACCT No. Visit Date/Time Discharge Status Pt. Type Provider Facility Loc./Unit Complaint [id number] 09/12/2016 11:01:00 2016 23:59:00 DIS Outpatient Russ Higgins V [facility] pre op phy for back surgery 3.28.17 [id number] 08/09/2016 00:01:00 2016 23:59:00 DIS Outpatient Robb Flowers [facility] Mur Card ekg Z01.818 Flowers [id number] 08/08/2016 13:35:00 2016 23:59:00 DIS Outpatient Robb Flowers [facility] PRE OP PHY FOR BACK SURGERY WITH DR SANDERS ON 08.15.17 [id number] 05/06/2016 10:05:00 2015 23:59:00 DIS Outpatient Russ Higgins V [facility] New FM TCPA 1 month follow up med check [id number] 03/28/2016 09:52:00 2015 23:59:00 DIS Outpatient Russ Higgins V [facility] New FM med check [id number] 11/27/2015 11:00:00 2015 23:59:00 DIS Outpatient Russ Higgins V [facility] New blood pressure check [id number] 10/02/2015 12:45:00 2015 23:59:00 DIS Outpatient Russ Higgins V [facility] New FM CRMMP [id number] 04/03/2015 12:37:00 2014 23:59:59 CLS Outpatient Russ Higgins V [facility] New FM 6MTH CDM HTN
--- NOTE | 2016-09-23 05:10 | NUR ---
PROVIDER DR HUMPHRIES IN ROOM TO SEE PT
[2016-09-23] MEDS ORDERED: NORMAL SALINE 1,000 ML IV ONE (05:23)
[2016-09-23] MEDS ORDERED: CARB-47 PO ×2 (05:25)
[2016-09-23] MEDS ORDERED: METO50TA5 PO (05:25)
[2016-09-23] MEDS ORDERED: MUSCLE RELAXOR (05:25)
[2016-09-23] MEDS ORDERED: AMLO5TAB2 PO (05:25)
--- NOTE | 2016-09-23 05:29 | ERPDOC ---
Departure Disposition Decision Date: Sep 23, 2016 Disposition Decision Time: 06:40 Disposition: 01 DISCHARGED HOME, SELF-CARE Impression Impression Impression: Primary Impression: Constipation due to opioid therapy Additional Impression: History of back surgery Severity: Severe Condition: Stable Seen By: Physician only Referrals: YOHANA COOPER MD (Family) 3 Days Patient Instructions: Constipation (ED) Problems/Meds/Labs Reviewed?: Yes Medications reviewed and manag: Yes Additional Instructions: You are constipated from diet changes and narcotic medications. Take miralax no more frequently than every hour. You may also take a stimulant laxative (like magnesium citrate or milk of magnesia). If you have trouble getting started, you may use an enema or suppository. Continue to take your pain medication as prescribed. Follow up with your doctor next week. Follow up care ordered?: Yes Mental Status: Alert, Oriented HPI - Abdominal Pain General Chief Complaint: Abdominal Pain Stated Complaint: CONSTIPATED,PAIN POST BACK SURGERY Time Seen by Provider: 05:23 Source: patient, family History/Exam Limitations: no limitations HPI - Abdominal Pain Initial Comments 70yo man presented to the ER [facility] with abdominal pain. Pt had back surgery three days ago and has been on narcotic pain medications ever since. Pt has not had a BM since two days prior to his surgery. He was discharged early from the surgical center yesterday; when his brother checked on him this AM, there was a significant change. Pt has underlying Parkinson's; he had to d/c his coumadin for surgery - his frantz hose are around his ankles (pt is not able to bend to place them on his legs). Occurred At: home Onset: Gradual, Getting worse Duration: 1 week Pain Scale: Now & Worst: 6/10 Quality: cramping Location: generalized abdomen Activities at Onset: none Modifying Factors: IMPROVES WITH: lying down, rest, WORSE WITH: movement, palpation Associated Symptoms: denies symptoms Hx of Similar Symptoms: Yes Allergies: Coded Allergies: NKDA (Verified Allergy, Unknown, 09/19/16) Past History Past Medical History Metabolic: hypertension Respiratory: asthma GI: IBS, constipation, ulcers Neurological: other Musculoskeletal: back pain, osteoarthritis Psychological: anxiety Surgical History General: colonoscopy Cardiac: cardiac cath Family History Family PMH: FOUND: other Vaccines Hx Influenza Vaccination: Yes (MAR 2012) Hx Pneumococcal Vaccination: Yes (JUL 2011) Review of Systems GI Upper Abdomen: pain, DENIES: dysphagia, food intolerances, heartburn/ indigestion, hematemesis, nausea, vomiting Lower Abdomen: constipation, pain, DENIES: blood in stool, luis antonio-colored stools , diarrhea, melena, painful BM All other Systems All Other Systems: Reviewed and Negative Physical Exam General General Nourishment: well nourished, well developed, appears stated age, no acute distress, adult General Body Habitus: well groomed Vitals and Pain First Documented Vital Signs Date Time Temp Pulse Resp B/P Pulse Ox O2 Delivery O2 Flow Rate FiO2 09/23/16 04:41 99.8 88 18 180/88 96 Room Air Weight: Kilograms: 89.600 Height (feet): 5 Height (inches): 10.00 Triage Pain Scale: RN VS reviewed by Provider: Yes Normal Exams: Head: Normocephalic w/o trauma Eyes: Pupils are PERRLA w/ EOMI, No scleral icterus, irritation ENMT: No facial trauma, nasal exudates, pharyngeal erythema Neck: Full range of motion, without adenopathy, JVD Lymphatic: No lymphadenopathy Musculoskeletal: No tenderness, or deformity noted, good range of motion Integumentary: No rashes, hives, or bruising noted Neurologic: Patient is alert, and oriented Psychiatric: Patient exhibits, appropriate attention Respiratory (brief) Respiratory: FOUND: clear all correa, equal bilaterally, symmetrical, NOT FOUND : rales, wheezes Cardiovascular (brief) Cardiac: FOUND: regular rate, regular rhythm, NOT FOUND: click, gallop, murmur , pedal edema, peripheral edema, rub Capillary Refill: <2 sec Pulses: all distal extremities, equal, strong Abdomen (brief) Abdominal Brief: FOUND: bowel normo active x4, soft, tender (Diffusely TTP without peritoneal signs; palpable stool burden along course of colon), NOT FOUND: distended, hepatosplenomegaly, pulsatile mass Differential Diagnoses Considering: Bowel Obstruction, Constipation, Diverticulitis, Gastroenteritis, IBS, Ileus, Volvulus, Other (neurologic incompetence; drug-induced constipation) Progress Results/Orders Orders Procedure Category Date Status Time Iv Lock (Ed Only) EDM 09/23/16 Transmitted 05:23 Nothing By Mouth (Ed EDM 09/23/16 Transmitted Only) 05:23 Cbc W/Auto LAB 09/23/16 Complete Diff-Reflex Manual 05:23 Cmp - Comprehensive LAB 09/23/16 Complete Metabolic 05:23 Lipase LAB 09/23/16 Complete 05:23 Kub W/Upright RAD 09/23/16 Resulted 05:23 Normal Saline (Normal PHA 09/23/16 Complete Saline Iv) 05:23 Ondansetron Inj PHA 09/23/16 Complete (Zofran) 05:30 Ketorolac (Toradol) PHA 09/23/16 Complete 05:30 Morphine Sulfate PHA 09/23/16 Complete (Morphine) 06:45 Hydrocodone/Acetaminophen PHA 09/23/16 Complete ([place] 10/325) 06:45 Lab Results Laboratory Tests Test 09/23/16 05:40 White Blood Count 8.6T/MM3 Red Blood Count 4.30M/MM3 Hemoglobin 12.9GM/DL Hematocrit 39.5% Mean Corpuscular Volume 91.9UM3 Mean Corpuscular Hemoglobin 30.0UUG Mean Corpuscular Hemoglobin Concent 32.7GM/DL RDW Standard Deviation 46.1FL Platelet Count 169T/MM3 Mean Platelet Volume 10.4UM3 Immature Granulocyte % (Auto) 0.2% Neutrophils (%) (Auto) 81.1% Lymphocytes (%) (Auto) 7.0% Monocytes (%) (Auto) 11.1% Eosinophils (%) (Auto) 0.5% Basophils (%) (Auto) 0.1% Absolute Immature Granulocyte (auto 0.02T/MM3 Absolute Neutrophils (auto) 7.0T/MM3 Absolute Lymphocytes (auto) 0.6T/MM3 Absolute Monocytes (auto) 1.0T/MM3 Absolute Eosinophils (auto) 0.0T/MM3 Absolute Basophils (auto) 0.0T/MM3 Turbidity < 20 Sodium Level 141MEQ/L Potassium Level 4.0MEQ/L Chloride Level 103MEQ/L Carbon Dioxide Level 27MEQ/L Anion Gap 11MEQ/L Blood Urea Nitrogen 13.0MG/DL Creatinine 0.9MG/DL Glomerular Filtration Rate Calc 83 BUN/Creatinine Ratio 14RATIO Glucose Level 111MG/DL Calculated Osmolality 272MOSM/KG Calcium Level 9.0MG/DL Total Bilirubin 0.90MG/DL Icterus Index < 2 Aspartate Amino Transf (AST/SGOT) 39U/L Alanine Aminotransferase (ALT/SGPT) 30U/L Alkaline Phosphatase 71U/L Total Protein 6.7G/DL Albumin 3.5G/DL Globulin 3.2G/DL Albumin/Globulin Ratio 1.1RATIO Lipase 36U/L Chemistry Specimen Hemolysis 15 Medications Current ED Medications Sodium Chloride (Normal Saline IV) 1,000 ml @ 0 mls/hr Q0M ONCE IV Last administered on 09/23/16 05:59; Start 09/23/16 at 05:23; Stop 09/23/16 at 05:27 ; Status DC Ondansetron HCl (Zofran) 4 mg O ONCE IV Last administered on 09/23/16 06:00; Start 09/23/16 at 05:30; Stop 09/23/16 at 05:31; Status DC Ketorolac Tromethamine (Toradol) 30 mg O ONCE IV Last administered on 06:01; Start 09/23/16 at 05:30; Stop 09/23/16 at 05:31; Status DC Morphine Sulfate (Morphine) 2 mg O ONCE IV Last administered on 09/23/16 06: 48; Start 09/23/16 at 06:45; Stop 09/23/16 at 06:46; Status DC Acetaminophen/ Hydrocodone Bitart ([place] 10/325) 1 tab O ONCE PO Last administered on 09/23/16 07:13; Start 09/23/16 at 06:45; Stop 09/23/16 at 06:46 ; Status DC Progress Progress Pt requesting an enema or medication to move his bowels and a discharge note. Had a long discussion with pt regarding need for evaluation, concerns regarding pts functional status, and his ability to care for himself if discharged from the ER. Pt is unconcerned - he wants to move his bowels and go home. Pts family is more understanding of concerns and need for evaluation. Pt will allow evaluation. Given pts current status (off of anticoagulation, Frantz hose out of place, unable to perform ADLs), strong reservations about his discharge from the hospital yesterday and strong reservations about discharging pt to home today, even if his eventual diagnosis is 'only' constipation. Long discussion held with pt regarding dx (constipation), prognosis, and treatment. Pt has numerous relatives who live within a few miles of him; he has a sister who will let the pt convalesce in a separate apartment within her home. Discussed necessary changes to pts meds and anticoagulation strategy. Pt and family all voiced understanding of plan, limitations, ultimate recommendation for admission/SNF placement, and RTC criteria. Will take pt home to decompress his bowels on his own and convalesce among family. Cautiously agree with plan arranged with family. Excellent RTC precautions given and instructed pt to f/u with PCM, nina. Xray Xray : Xray: KUB Upright Interpretation: Abnormal (Large stool burden), Interpreted by EUFEMIA Briones DO Sep 23, 2016 05:29
[2016-09-23] MEDS ORDERED: KETOROLAC 30mg/ml INJECTION IV ONE (05:30)
[2016-09-23] MEDS ORDERED: ONDANSETRON 4mg/2ml INJECTION IV ONE (05:30)
[2016-09-23 05:49] LABS: BASOPHILS % (AUTO) 0.1 % (0-2); EOSINOPHILS % (AUTO) 0.5 % (0-4); HCT - HEMATOCRIT 39.5 % (41-53); HGB - HEMOGLOBIN 12.9 GM/DL (13.5-17.5); IMMATURE GRANULOCYTE # (AUTO) 0.02 T/MM3 (0.00-0.03); IMMATURE GRANULOCYTE % (AUTO) 0.2 % (0.0-0.5); LYMPHOCYTES # (AUTO) 0.6 T/MM3 (1-4.8); MEAN CORPUSCULAR HGB CONC(MCHC 32.7 GM/DL (31-37); MEAN CORPUSCULAR VOLUME 91.9 UM3 (80-100); MEAN PLATELET VOLUME 10.4 UM3 (9.4-12.4); MONOCYTES % (AUTO) 11.1 % (0-9.0); NEUTROPHILS % (AUTO) 81.1 % (33-66); WBC - WHITE BLOOD COUNT 8.6 T/MM3 (4.5-11.0)
--- NOTE | 2016-09-23 05:57 | NUR ---
RETURN FROM XRAY VIA W/C PT IS TAKEN TO THE BATHROOM TO URINATE. PT IS THEN TAKEN BACK TO HIS ROOM. PT TRANSFERS TO CART.
[2016-09-23 05:58] LABS: ALBUMIN 3.5 G/DL (3.5-5.0); ALBUMIN/GLOBULIN RATIO 1.1 RATIO (1.1-2.2); ALKALINE PHOSPHATASE 71 U/L (38-126); ALT (SGPT) 30 U/L (21-72); ANION GAP 11 MEQ/L (5-15); AST (SGOT) 39 U/L (17-59); BUN/CREATININE RATIO 14 RATIO (6-26); CHLORIDE 103 MEQ/L (98-107); CO2 - CARBON DIOXIDE 27 MEQ/L (22-30); CREATININE 0.9 MG/DL (0.8-1.5); GLOMERULAR FILTRATION RATE 83; GLUCOSE 111 MG/DL (75-110); LIPASE 36 U/L (23-300); SODIUM 141 MEQ/L (134-144); TOTAL PROTEIN 6.7 G/DL (6.3-8.2)
--- OUTSIDE RECORDS SUMMARY | 2016-09-23 06:08 | XMS REPORT | Continuity of Care Document ---
Author Author [facility] Organization [facility] Address Unknown Phone Unavailable Allergies Active Description [...] 2 MG/1ML SYRINGE ML 09/20/2016 09/20/2017 IVP [id number] MORPHINE 4MG/1ML SYRINGE ML 09/20/2016 09/20/2017 IVP U3SZIMS BISACODYL 10MG SUPPOS. SUP 09/20/2016 09/20/2017 PA* PRN ONDANSETRON 4MG TABLET TAB 09/20/2016 09/20/2017 PO [id number] METOCLOPRAMIDE 10MG TABLET TAB 09/20/2016 09/20/2016 PO [id number] HYDROcodone/ACETAMINOPHEN 7.5-325 MG TABLET TAB 09/20/2016 PO Z6CFYSY BISACODYL 5MG TABLET TAB 09/20/2016 09/20/2017 PO PRN SODIUM CHLORIDE 0.9% 1000ML IV SOLN BAG 09/20/2016 09/21/2016 LVP 70ML/HR ONDANSETRON 4MG/2ML INJ VL 09/20/2016 09/20/2017 IVP [id number] METOCLOPRAMIDE 10MG/2ML INJ VL 09/20/2016 09/20/2016 IVP [id number] hydroMORPHONE 2MG/1ML INJ ML 09/20/2016 09/20/2016 IV POST-OP METHOCARBAMOL 750MG TABLET TAB 09/20/2016 09/20/2017 PO [id number] ONDANSETRON 4MG/2ML INJ VL 09/20/2016 09/21/2016 IV [...] 30 MG/1ML INJ DOS 09/21/2016 09/21/2016 IVP [id number] MAGNESIUM OXIDE 400MG TABLET TAB 09/21/2016 09/21/2016 PO ONCE KETOROLAC 30 MG/1ML INJ DOS 09/21/2016 09/21/2016 IVP ONCE KETOROLAC 30 MG/1ML INJ DOS 09/21/2016 09/21/2017 IVP [id number] *METOPROLOL TARTRATE 50MG TABLET TAB 10/17/2016 09/20/2016 [...] Status Pt. Type Provider Facility Loc./Unit Complaint [id number] 09/12/2016 11:01:00 2016 23:59:00 DIS Outpatient Russ Higgins V [facility] pre op phy for back surgery 3.28.17 [id number] 08/09/2016 00:01:00 2016 23:59:00 DIS Outpatient Robb Flowers Via [facility] Mur Card ekg Z01.818 Flowers [id number] 08/08/2016 13:35:00 2016 23:59:00 DIS Outpatient Robb Flowers [facility] PRE OP PHY FOR BACK SURGERY WITH DR SANDERS ON 08.15.17 [id number] 05/06/2016 10:05:00 2015 23:59:00 DIS Outpatient Russ Higgins V [facility] New FM TCPA 1 month follow up med check [id number] 03/28/2016 09:52:00 2015 23:59:00 DIS Outpatient Russ Higgins V [facility] New FM med check [id number] 11/27/2015 11:00:00 2015 23:59:00 DIS Outpatient Russ Higgins V [facility] New blood pressure check [id number] 10/02/2015 12:45:00 2015 23:59:00 DIS Outpatient Russ Higgins V [facility] New FM CRMMP [id number] 04/03/2015 12:37:00 2014 23:59:59 CLS Outpatient Russ Higgins V [facility] New FM 6MTH CDM HTN
--- NOTE | 2016-09-23 06:30 | NUR ---
DR HUMPHRIES IN
[2016-09-23] MEDS ORDERED: MORPHINE SULFATE 2 MG SYRINGE IV ONE (06:45)
[2016-09-23 07:30] VITALS: BP 135/74; PULSE 84; RESP 16; TEMP 99; O2SAT 95
--- NOTE | 2016-09-23 07:30 | NUR ---
DISMISSAL AMB TO CAR WITHOUT HELP. PAIN IMPROVED
--- NOTE | 2016-09-23 07:54 | DI ---
Indication: ITS.REASON: Abd pain/constipation PROCEDURE: KUB W/UPRIGHT: Encounter: Initial Comparison: None Findings: The visualized lung bases are clear. There is no free air on the upright view. The bowel gas pattern is nonobstructive and nonspecific. Gas is seen in nondilated small and large bowel to the level of the rectum. Moderate stool is seen throughout the colon. Postoperative changes in the lower lumbar spine. Impression: Nonobstructive nonspecific bowel gas pattern. .
== END 2016-09-23 07:30 | disposition home or self-care (01) ==
LOC: ED 04:41
DX: K59.03 Drug induced constipation (principal); T40.2X5A Adverse effect of other opioids, initial encounter; Y92.009 Unspecified place in unspecified non-institutional (private) residence as the place of occurrence of the external cause; Z98.890 Other specified postprocedural states
CPT/HCPCS: 74020; 80053; 83690; 85025; 96361; 96374; 96375; 99284; A9270; J1885; J2405; J7030